=== PATIENT | male | born 1940 | race Asian ===

== ENCOUNTER 2023-08-24 02:25 | Inpatient (IN) | payer OTHER, BC ==
[~2023-08-24] VITALS: Ht 177.8 cm; Wt 77.6 kg
[2023-08-24 02:33] VITALS: BP 128/60; PULSE 74; RESP 18; TEMP 98.7; O2SAT 97
[2023-08-24 04:52] LABS: BASOPHILS # (AUTO) 0.1 K/uL (0.00-0.22); BASOPHILS % (AUTO) 1.1 % (0.0-2.0); EOSINOPHILS # (AUTO) 0.1 K/uL (0-0.4); EOSINOPHILS % (AUTO) 1.5 % (0.0-4.0); HEMATOCRIT 23.2 % (36-52); HEMOGLOBIN 7.8 g/dL (12.0-18.0); LYMPHOCYTES # (AUTO) 1.9 K/uL (2.0-11.5); LYMPHOCYTES % (AUTO) 22.5 % (20.5-51.1); MEAN CORPUSCULAR HEMOGLOBIN 36 pg (27-31); MEAN CORPUSCULAR HGB CONC 34 g/dL (33-37); MEAN CORPUSCULAR VOLUME 105.6 fL (80-94); MONOCYTES # (AUTO) 1.4 K/uL (0.8-1.0); MONOCYTES % (AUTO) 17.1 % (1.7-9.3); NEUTROPHILS # (AUTO) 4.9 K/uL (1.8-7.7); NEUTROPHILS % (AUTO) 57.8 % (42.2-75.2); PLATELET COUNT (AUTO) 255 K/uL (140-450); RED CELL DISTRIBUTION WIDTH 15.7 % (11.6-13.7); WHITE BLOOD COUNT (AUTO) 8.4 K/uL (4.8-10.8)
[2023-08-24 05:03] LABS: ANION GAP 12.3 (8-16); CALCIUM 8.1 mg/dL (8.5-10.1); CARBON DIOXIDE 29.5 mmol/L (21-32); CHLORIDE 98 mmol/L (98-107); CREATININE 3.8 mg/dL (0.6-1.3); GLUCOSE 95 mg/dL (74-106); POTASSIUM 4.8 mmol/L (3.5-5.1); SODIUM SERUM 135 mmol/L (136-145); UREA NITROGEN, BLOOD 48 mg/dL (7-18)
[2023-08-24] MEDS ORDERED: MORPHINE SULFATE 2 MG/ML SYR IVP PRN ×2 (05:50→15:45)
[2023-08-24] MEDS ORDERED: INSULIN LISPRO SLIDING SCALE 100 UNITS/ML VIAL SUBQ PRN (05:50)
[2023-08-24] MEDS ORDERED: DEXTROSE 50% 50 ML SYR IVP PRN (05:50)
[2023-08-24] MEDS ORDERED: NITROGLYCERIN 0.4 MG TAB SL PRN (05:50)
[2023-08-24] MEDS ORDERED: ACETAMINOPHEN 325 MG TAB PO PRN ×3 (05:50→15:45)
[2023-08-24] MEDS ORDERED: ZOLPIDEM 5 MG TAB PO PRN (05:50)
[2023-08-24 06:06] LABS: APPEARANCE,URINE CLEAR (CLEAR); BILIRUBIN,URINE NEGATIVE (NEGATIVE); BLOOD, URINE NEGATIVE (NEGATIVE); COLOR,URINE YELLOW (YELLOW); LEUKOCYTE ESTERASE ,URINE NEGATIVE (NEGATIVE); NITRITE, URINE NEGATIVE (NEGATIVE); PROTEIN,URINE 2+ (NEGATIVE); UGLUCOSE NEGATIVE (NEGATIVE); UROBILINOGEN,URINE 0.2 EU/dL (0.2 - 1)
[2023-08-24] MEDS ORDERED: ALLO100T21 PO (06:47)
[2023-08-24] MEDS ORDERED: HYDR-1102 PO (06:47)
[2023-08-24] MEDS ORDERED: ATOR40TA PO (06:47)
[2023-08-24] MEDS ORDERED: BISA-218 RC (06:47)
[2023-08-24] MEDS ORDERED: INSU100V9 SQ (06:47)
[2023-08-24] MEDS ORDERED: ACET-2619 PO (06:47)
[2023-08-24] MEDS ORDERED: SYN.075 PO (06:47)
[2023-08-24] MEDS ORDERED: [UNRECOGNIZED DRUG - CODE] PO (06:47)
[2023-08-24] MEDS ORDERED: CLOP75TA55 PO (06:47)
[2023-08-24] MEDS ORDERED: ASCO-5 PO (06:47)
[2023-08-24] MEDS ORDERED: CARV6.25 PO (06:47)
[2023-08-24] MEDS ORDERED: SYN.1 PO (06:47)
[2023-08-24] MEDS ORDERED: FURO-572 PO (06:47)
[2023-08-24] MEDS ORDERED: DOCU-299 PO (06:47)
[2023-08-24] MEDS ORDERED: ASPI-1822 PO (06:47)
[2023-08-24 07:22] VITALS: O2SAT 99
[2023-08-24] MEDS: BLOOD GLUCOSE MONITORING 1 DEV DEV FS SCH ×4 (07:40→20:26)
[2023-08-24] MEDS ORDERED: lisinopriL 20 MG TAB PO SCH (09:00)
[2023-08-24] MEDS: ASPIRIN 81 MG TAB.CHEW PO SCH (09:30)
[2023-08-24] MEDS: ATORVASTATIN 20 MG TAB PO SCH (09:31)
[2023-08-24] MEDS: METOPROLOL 25 MG TAB PO SCH ×2 (09:33→20:24)
[2023-08-24 10:19] VITALS: O2SAT 99
[2023-08-24 12:00] VITALS: BP 115/57; PULSE 68; PULSE 71; RESP 19; RESP 20; TEMP 97.2; O2SAT 97; O2SAT 98
[2023-08-24] MEDS ORDERED: POTASSIUM CHLORIDE 10 MEQ TABER PO PRN (15:45)
[2023-08-24] MEDS ORDERED: LORazepam 2 MG/ML VIAL IVP PRN (15:45)
[2023-08-24] MEDS ORDERED: DOCUSATE SODIUM 100 MG GELCAP PO PRN (15:45)
[2023-08-24] MEDS ORDERED: ZOLPIDEM 10 MG TAB PO PRN (15:45)
[2023-08-24] MEDS ORDERED: MAG SULF 2000 MG/WATER PREMIX 50 ML IV PRN (15:45)
[2023-08-24] MEDS ORDERED: ONDANSETRON 4 MG/2 ML VIAL IVP PRN (15:45)
[2023-08-24 16:00] VITALS: BP 96/38; PULSE 68; PULSE 71; RESP 23; O2SAT 97
[2023-08-24] MEDS: HYDROcodone/APAP 7.5/325 MG 1 TAB PO PRN (16:27)
[2023-08-24 20:00] VITALS: BP 129/51; PULSE 69; PULSE 75; RESP 26; TEMP 97.8; O2SAT 98
[2023-08-25] VITALS (8 sets, daily range): BP systolic 97–128; BP diastolic 37–63; PULSE 52–95; RESP 14–26; TEMP 97.1–98.5; O2SAT 95–99
[2023-08-25] MEDS: HYDROcodone/APAP 7.5/325 MG 1 TAB PO PRN ×3 (00:52→23:31)
[2023-08-25 06:03] LABS: BASOPHILS # (AUTO) 0.1 K/uL (0.00-0.22); BASOPHILS % (AUTO) 0.9 % (0.0-2.0); EOSINOPHILS # (AUTO) 0.1 K/uL (0-0.4); EOSINOPHILS % (AUTO) 1.6 % (0.0-4.0); HEMATOCRIT 23.8 % (36-52); LYMPHOCYTES # (AUTO) 2.4 K/uL (2.0-11.5); LYMPHOCYTES % (AUTO) 30.8 % (20.5-51.1); MEAN CORPUSCULAR HEMOGLOBIN 34 pg (27-31); MEAN CORPUSCULAR HGB CONC 34 g/dL (33-37); MEAN CORPUSCULAR VOLUME 102.4 fL (80-94); MONOCYTES # (AUTO) 1.3 K/uL (0.8-1.0); MONOCYTES % (AUTO) 17.1 % (1.7-9.3); NEUTROPHILS # (AUTO) 3.9 K/uL (1.8-7.7); NEUTROPHILS % (AUTO) 49.6 % (42.2-75.2); PLATELET COUNT (AUTO) 209 K/uL (140-450); RED BLOOD CELL COUNT(AUTO) 2.33 MIL/uL (4.20-6.10); RED CELL DISTRIBUTION WIDTH 18.2 % (11.6-13.7); WHITE BLOOD COUNT (AUTO) 7.8 K/uL (4.8-10.8)
[2023-08-25 06:33] LABS: ANION GAP 9.9 (8-16); CALCIUM 7.8 mg/dL (8.5-10.1); CARBON DIOXIDE 32.9 mmol/L (21-32); CHLORIDE 99 mmol/L (98-107); CREATININE 3.1 mg/dL (0.6-1.3); GLUCOSE 106 mg/dL (74-106); POTASSIUM 3.8 mmol/L (3.5-5.1); SODIUM SERUM 138 mmol/L (136-145); UREA NITROGEN, BLOOD 30 mg/dL (7-18)
[2023-08-25 07:01] LABS: MAGNESIUM 1.6 mg/dL (1.8-2.4)
[2023-08-25] MEDS: BLOOD GLUCOSE MONITORING 1 DEV DEV FS SCH ×4 (07:19→20:29)
[2023-08-25] MEDS: ATORVASTATIN 20 MG TAB PO SCH (09:32)
[2023-08-25] MEDS: VIT-B COMP/VIT-C/FOLIC ACID 1 TAB PO SCH (09:32)
[2023-08-25] MEDS: lisinopriL 10 MG TAB PO SCH (09:32)
[2023-08-25] MEDS: ASPIRIN 81 MG TAB.CHEW PO SCH (09:32)
[2023-08-25] MEDS: METOPROLOL 25 MG TAB PO SCH ×2 (09:33→21:00)
[2023-08-25] MEDS ORDERED: MAG SULF 2000 MG/WATER PREMIX 50 ML IV SCH (10:30)
[2023-08-26] VITALS (7 sets, daily range): BP systolic 120–164; BP diastolic 40–59; PULSE 70–82; RESP 18–72; TEMP 98.3–100.3; O2SAT 95–99
[2023-08-26 06:51] LABS: BASOPHILS % (AUTO) 0.6 % (0.0-2.0); EOSINOPHILS # (AUTO) 0.1 K/uL (0-0.4); HEMATOCRIT 23.3 % (36-52); HEMOGLOBIN 7.8 g/dL (12.0-18.0); LYMPHOCYTES # (AUTO) 2.6 K/uL (2.0-11.5); LYMPHOCYTES % (AUTO) 29.9 % (20.5-51.1); MEAN CORPUSCULAR HEMOGLOBIN 34 pg (27-31); MEAN CORPUSCULAR HGB CONC 33 g/dL (33-37); MEAN CORPUSCULAR VOLUME 102.4 fL (80-94); MONOCYTES # (AUTO) 1.3 K/uL (0.8-1.0); MONOCYTES % (AUTO) 15.3 % (1.7-9.3); NEUTROPHILS # (AUTO) 4.6 K/uL (1.8-7.7); NEUTROPHILS % (AUTO) 53.2 % (42.2-75.2); PLATELET COUNT (AUTO) 194 K/uL (140-450); RED BLOOD CELL COUNT(AUTO) 2.28 MIL/uL (4.20-6.10); RED CELL DISTRIBUTION WIDTH 18.1 % (11.6-13.7); WHITE BLOOD COUNT (AUTO) 8.7 K/uL (4.8-10.8)
[2023-08-26 07:00] LABS: ANION GAP 10.7 (8-16); CALCIUM 7.7 mg/dL (8.5-10.1); CARBON DIOXIDE 30.5 mmol/L (21-32); CHLORIDE 99 mmol/L (98-107); GLUCOSE 116 mg/dL (74-106); POTASSIUM 4.2 mmol/L (3.5-5.1); SODIUM SERUM 136 mmol/L (136-145); UREA NITROGEN, BLOOD 49 mg/dL (7-18)
[2023-08-26] MEDS: BLOOD GLUCOSE MONITORING 1 DEV DEV FS SCH ×4 (07:00→20:44)
[2023-08-26 07:59] LABS: CREATININE 4.1 mg/dL (0.6-1.3)
[2023-08-26] MEDS ORDERED: EPOETIN ALFA-EPBX 10,000 UNITS/ML VIAL IV SCH (09:00)
[2023-08-26] MEDS: HYDROcodone/APAP 7.5/325 MG 1 TAB PO PRN ×2 (09:42→19:01)
[2023-08-26] MEDS: ASPIRIN 81 MG TAB.CHEW PO SCH (10:49)
[2023-08-26] MEDS: ATORVASTATIN 20 MG TAB PO SCH (10:49)
[2023-08-26] MEDS: METOPROLOL 25 MG TAB PO SCH ×2 (10:52→20:44)
[2023-08-26] MEDS: VIT-B COMP/VIT-C/FOLIC ACID 1 TAB PO SCH (10:53)
[2023-08-26] MEDS: lisinopriL 10 MG TAB PO SCH (10:53)
[2023-08-26] MEDS ORDERED: METO25TA PO (11:23)
[2023-08-26] MEDS ORDERED: LISI10TA30 PO (11:23)
[2023-08-26] MEDS ORDERED: [UNRECOGNIZED DRUG - CODE] IV (11:23)
[2023-08-26] MEDS ORDERED: VITA1TAB44 PO (11:30)
[2023-08-26] MEDS ORDERED: FOAM DRESSING TP PRN (12:30)
[2023-08-26] MEDS ORDERED: GAUZE TP SCH (13:00)
[2023-08-26] MEDS ORDERED: FOAM DRESSING TP SCH (13:00)
== END 2023-08-26 21:50 | DRG 811 ==
LOC: MED 02:25 → MTU 05:57 → MIC 11:22 → MTU 08-25 18:30
PROVIDERS: ADMIT Family Medicine; ATTEND Family Medicine
PROC: 30233N1 Transfusion of Nonautologous Red Blood Cells into Peripheral Vein, Percutaneous Approach (ICD-10-PCS; principal; 2023-08-24)
PROC: 5A1D70Z Performance of Urinary Filtration, Intermittent, Less than 6 Hours Per Day (ICD-10-PCS; 2023-08-25)
DX: D53.9 Nutritional anemia, unspecified (principal); I21.A1 Myocardial infarction type 2; N18.6 End stage renal disease; I12.0 Hypertensive chronic kidney disease with stage 5 chronic kidney disease or end stage renal disease; I25.10 Atherosclerotic heart disease of native coronary artery without angina pectoris; E11.22 Type 2 diabetes mellitus with diabetic chronic kidney disease; Z99.2 Dependence on renal dialysis
CPT/HCPCS: 36415; 36430; 80048; 81003; 82948; 83735; 84484; 85025; 86886; 86900; 86901; 86920; 87081; 87086; 93005; 97116; 97163-GP; 99285; J1815; J3475; P9016; Q5106

== ENCOUNTER 2023-09-11 11:21 | Emergency (ER) | payer OTHER, BC ==
[~2023-09-11] VITALS: Ht 170.2 cm; Wt 77.1 kg
[~2023-09-11 11:21] MED LIST: ACET-2619 PO; ALLO100T21 PO; ASCO-5 PO; ASPI-1822 PO; ATOR40TA PO; BISA-218 RC; CARV6.25 PO; DOCU-299 PO; FURO-572 PO; HYDR-1102 PO; INSU100V9 SQ; LISI10TA30 PO; METO25TA PO; SYN.1 PO; VITA1TAB44 PO; [UNRECOGNIZED DRUG - CODE] IV; [UNRECOGNIZED DRUG - CODE] PO
[2023-09-11 11:23] VITALS: BP 152/72; PULSE 75; RESP 20; TEMP 98.7; O2SAT 96
[2023-09-11] MEDS ORDERED: ONDANSETRON 4 MG ODT PO ONE (12:50)
[2023-09-11] MEDS ORDERED: MORPHINE SULFATE 4 MG/ML SYR IM ONE (12:50)
[2023-09-11] MEDS ORDERED: AZIT250T4 PO (14:24)
[2023-09-11] MEDS ORDERED: HYDR-5191 PO (14:25)
[2023-09-11 15:41] VITALS: BP 154/55; PULSE 87; RESP 21; O2SAT 95
== END 2023-09-11 15:43 | disposition home or self-care (01) ==
LOC: MED 11:21
DX: J18.9 Pneumonia, unspecified organism (principal); R07.89 Other chest pain; K91.841 Postprocedural hemorrhage of a digestive system organ or structure following other procedure; I12.0 Hypertensive chronic kidney disease with stage 5 chronic kidney disease or end stage renal disease; E11.22 Type 2 diabetes mellitus with diabetic chronic kidney disease; N18.6 End stage renal disease; Z99.2 Dependence on renal dialysis; Z79.4 Long term (current) use of insulin; Z79.899 Other long term (current) drug therapy
CPT/HCPCS: 71045; 96372; 99283; J2270; Q0162

== ENCOUNTER 2023-10-11 14:05 | Inpatient (IN) | payer OTHER, BC ==
[~2023-10-11] VITALS: Ht 182.9 cm; Wt 76.5 kg
[~2023-10-11 14:05] MED LIST changes: +AZIT250T4 PO; +HYDR-5191 PO
[2023-10-11 14:19] VITALS: BP 96/39; PULSE 74; RESP 16; TEMP 98.2; O2SAT 97
[2023-10-11 15:06] VITALS: PULSE 74; RESP 16; O2SAT 100
[2023-10-11] MEDS: ALBUTEROL 0.083% 2.5 MG/3 ML NEBU INH ONE (15:06)
[2023-10-11] MEDS: NACL 0.9% 2,000 ML IV SCH (15:17)
[2023-10-11] MEDS ORDERED: PIPERACILLIN/TAZOBACTAM 3.375 GM VIAL IV ONE (15:20)
[2023-10-11 15:32] LABS: BASOPHILS # (AUTO) 0.1 K/uL (0.00-0.22); BASOPHILS % (AUTO) 0.6 % (0.0-2.0); EOSINOPHILS % (AUTO) 0.3 % (0.0-4.0); HEMATOCRIT 30.1 % (36-52); HEMOGLOBIN 9.6 g/dL (12.0-18.0); LYMPHOCYTES # (AUTO) 3.5 K/uL (2.0-11.5); LYMPHOCYTES % (AUTO) 24.4 % (20.5-51.1); MEAN CORPUSCULAR HEMOGLOBIN 34 pg (27-31); MEAN CORPUSCULAR HGB CONC 32 g/dL (33-37); MEAN CORPUSCULAR VOLUME 107.5 fL (80-94); MONOCYTES # (AUTO) 1.1 K/uL (0.8-1.0); MONOCYTES % (AUTO) 7.6 % (1.7-9.3); NEUTROPHILS # (AUTO) 9.7 K/uL (1.8-7.7); NEUTROPHILS % (AUTO) 67.1 % (42.2-75.2); PLATELET COUNT (AUTO) 72 K/uL (140-450); WHITE BLOOD COUNT (AUTO) 14.4 K/uL (4.8-10.8)
[2023-10-11] MEDS: PIPERACILLIN/TAZOBACTAM 3.375 GM in DEXT 5% MINI-BAG PLUS 50 ML IV ONE (15:40)
[2023-10-11 15:43] LABS: ANION GAP 9.3 (8-16); CALCIUM 6.9 mg/dL (8.5-10.1); CHLORIDE 103 mmol/L (98-107); GLUCOSE 88 mg/dL (74-106); POTASSIUM 4.3 mmol/L (3.5-5.1); SODIUM SERUM 137 mmol/L (136-145); UREA NITROGEN, BLOOD 31 mg/dL (7-18)
[2023-10-11 15:48] LABS: BILIRUBIN,DIRECT 0.1 mg/dL (0.0-0.3)
[2023-10-11 15:52] LABS: LACTIC ACID 0.9 mmol/L (0.4-2.0)
[2023-10-11 15:54] LABS: CREATININE 4.4 mg/dL (0.6-1.3)
[2023-10-11 15:56] LABS: ALANINE AMINOTRANSFERASE 4 U/L (12-78); ALBUMIN 0.9 g/dL (3.4-5.0); ALKALINE PHOSPHATASE 51 U/L (50-136); ASPARTATE AMINOTRANSFERASE 22 U/L (15-37); TOTAL BILIRUBIN 0.3 mg/dL (0.0-1.0); TOTAL PROTEIN, SERUM 4.4 g/dL (6.4-8.2)
[2023-10-11 16:02] LABS: INR 1.68 (0.8-1.2); PARTIAL THROMBOPLASTIN TIME 38.9 secs (22-35.6); PROTHROMBIN TIME 17.2 secs (10.8-13.4)
[2023-10-11] MEDS ORDERED: DIAZEPAM PFS 10 MG/2 ML SYR IVP ONE (16:40)
[2023-10-11 18:48] LABS: APPEARANCE,URINE CLOUDY (CLEAR); BILIRUBIN,URINE NEGATIVE (NEGATIVE); BLOOD, URINE 2+ (NEGATIVE); COLOR,URINE GREEN (YELLOW); LEUKOCYTE ESTERASE ,URINE 3+ (NEGATIVE); NITRITE, URINE POSITIVE (NEGATIVE); PROTEIN,URINE 3+ (NEGATIVE); UGLUCOSE NEGATIVE (NEGATIVE); UROBILINOGEN,URINE 0.2 EU/dL (0.2 - 1)
[2023-10-11 19:00] LABS: RBC,URINE 20-50 /HPF (0-5)
[2023-10-11 19:01] LABS: BACTERIA,URINE None Seen /HPF (None Seen); MUCUS,URINE 2+ /LPF (None Seen); SQUAMOUS EPITHELIAL CELL,UR 0-3 (FEW) /LPF (0-3 (FEW)); WBC,URINE 20-60 /HPF (0-5)
[2023-10-11] MEDS ORDERED: LEVO0.0512 PO (19:24)
[2023-10-11] MEDS ORDERED: ATOR40TA40 PO (19:24)
[2023-10-11] MEDS ORDERED: ALLO100T21 PO (19:24)
[2023-10-11] MEDS ORDERED: TAMS0.4C97 PO (19:24)
[2023-10-11] MEDS ORDERED: CARV6.252 PO (19:24)
[2023-10-11 19:34] VITALS: O2SAT 98
[2023-10-11] MEDS ORDERED: MAG SULF 2000 MG/WATER PREMIX 50 ML IV PRN (20:30)
[2023-10-11] MEDS ORDERED: ONDANSETRON 4 MG/2 ML VIAL IVP PRN (20:30)
[2023-10-11] MEDS ORDERED: HYDROcodone/APAP 5/325 MG 1 TAB TAB PO PRN (20:30)
[2023-10-11] MEDS ORDERED: POLYETHYLENE GLYCOL 17 GM/PKT PO PRN (20:30)
[2023-10-11] MEDS ORDERED: MELATONIN 3 MG TAB PO PRN (20:30)
[2023-10-11] MEDS ORDERED: PHARMACY TO DOSE MC PRN (20:35)
[2023-10-11] MEDS ORDERED: VANCOMYCIN PER PHARMACY MC PRN (20:35)
[2023-10-11] MEDS ORDERED: HEPARIN PER PHARMACY MC PRN ×2 (20:40→23:25)
[2023-10-11] MEDS ORDERED: DEXT 5% / NACL 0.45% 1,000 ML IV ONE (20:40)
[2023-10-11] MEDS ORDERED: DEXTROSE 50% 50 ML SYR IVP PRN (20:45)
[2023-10-11] MEDS: carvediloL 6.25 MG TAB PO SCH (21:00)
[2023-10-11 21:17] LABS: FREE T4 (FREE THYROXINE) 1.11 ng/dL (0.76-1.46); THYROID STIMULATING HORMONE 4.18 uIU/mL (0.34-3.74)
[2023-10-11] MEDS: BLOOD GLUCOSE MONITORING 1 DEV DEV FS SCH (21:33)
[2023-10-11 21:41] VITALS: O2SAT 100
[2023-10-11] MEDS ORDERED: PIPERACILLIN/TAZOBACTAM 2.25 GM VIAL IV ONE (21:49)
[2023-10-11] MEDS: PIPERACILLIN/TAZOBACTAM 2.25 GM in DEXTROSE 5% 50 ML IV SCH (21:57)
[2023-10-11 22:52] LABS: FLU A ANTIGEN negative (NEGATIVE); FLU B ANTIGEN NEGATIVE (NEGATIVE)
[2023-10-11] MEDS ORDERED: VANCOMYCIN HCL 750 MG PDS IV ONE (22:55)
[2023-10-11] MEDS: VANCOMYCIN 500 MG VIAL ONE (23:06)
[2023-10-11] MEDS ORDERED: hePARIN / DEXT 5% PREMIX 250 ML IV SCH (23:25)
[2023-10-11] MEDS: VANCOMYCIN HCL 1.25 GM in DEXTROSE 5% 250 ML IV SCH (23:30)
[2023-10-11] MEDS ORDERED: VOL25 PO (23:47)
[2023-10-11] MEDS ORDERED: ALBU0.5S1 NEB (23:47)
[2023-10-11] MEDS ORDERED: ATOR40TA PO (23:47)
[2023-10-11] MEDS ORDERED: DIPH25TA53 PO (23:47)
[2023-10-11] MEDS ORDERED: LISI40TA12 PO (23:47)
[2023-10-11] MEDS ORDERED: ACET-2619 GT (23:47)
[2023-10-11] MEDS ORDERED: SENN-73 PO (23:47)
[2023-10-11] MEDS ORDERED: ATI.5 PO (23:47)
[2023-10-11] MEDS ORDERED: FAMO-90 PO (23:47)
[2023-10-11] MEDS ORDERED: MAGN400S60 PO (23:47)
[2023-10-11] MEDS ORDERED: GABA100C PO (23:47)
[2023-10-11] MEDS ORDERED: APIX5TAB PO (23:47)
[2023-10-11] MEDS ORDERED: QUET25TA PO (23:47)
[2023-10-11] MEDS ORDERED: METO50TE2 PO (23:47)
[2023-10-11] MEDS ORDERED: HYDR-5191 PO (23:47)
[2023-10-11] MEDS ORDERED: XALOS OP (23:47)
[2023-10-11] MEDS ORDERED: HYDR100T49 PO (23:47)
[2023-10-11] MEDS ORDERED: ROB1 PO (23:47)
[2023-10-11] MEDS ORDERED: CLON0.1T16 PO (23:47)
[2023-10-11] MEDS ORDERED: DAPA10TA PO (23:47)
[2023-10-11] MEDS ORDERED: ALBU3SOL83 IH (23:47)
[2023-10-12] VITALS (10 sets, daily range): BP systolic 91–139; BP diastolic 44–72; PULSE 68–94; RESP 22–40; TEMP 97.5–97.8; O2SAT 96–100
[2023-10-12] MEDS: hePARIN / DEXT 5% PREMIX 250 ML IV SCH (02:03)
[2023-10-12] MEDS ORDERED: PIPERACILLIN/TAZOBACTAM 2.25 GM VIAL IV ONE (05:05)
[2023-10-12 07:15] LABS: BASOPHILS # (AUTO) 0.1 K/uL (0.00-0.22); BASOPHILS % (AUTO) 0.7 % (0.0-2.0); EOSINOPHILS # (AUTO) 0.1 K/uL (0-0.4); EOSINOPHILS % (AUTO) 0.7 % (0.0-4.0); HEMATOCRIT 29.4 % (36-52); HEMOGLOBIN 9.5 g/dL (12.0-18.0); LYMPHOCYTES # (AUTO) 2.8 K/uL (2.0-11.5); LYMPHOCYTES % (AUTO) 20.1 % (20.5-51.1); MEAN CORPUSCULAR HEMOGLOBIN 35 pg (27-31); MEAN CORPUSCULAR HGB CONC 32 g/dL (33-37); MEAN CORPUSCULAR VOLUME 107.1 fL (80-94); MONOCYTES % (AUTO) 7.5 % (1.7-9.3); NEUTROPHILS # (AUTO) 9.8 K/uL (1.8-7.7); PLATELET COUNT (AUTO) 76 K/uL (140-450); RED BLOOD CELL COUNT(AUTO) 2.74 MIL/uL (4.20-6.10); RED CELL DISTRIBUTION WIDTH 22.7 % (11.6-13.7); WHITE BLOOD COUNT (AUTO) 13.8 K/uL (4.8-10.8)
[2023-10-12 08:41] LABS: GLUCOSE 111 mg/dL (74-106); UREA NITROGEN, BLOOD 37 mg/dL (7-18)
[2023-10-12 08:51] LABS: ALANINE AMINOTRANSFERASE 6 U/L (12-78); ASPARTATE AMINOTRANSFERASE 33 U/L (15-37)
[2023-10-12 08:58] LABS: ALKALINE PHOSPHATASE 71 U/L (50-136); TOTAL BILIRUBIN 0.4 mg/dL (0.0-1.0)
[2023-10-12] MEDS ORDERED: ASPIRIN 81 MG TAB.CHEW PO SCH (09:00)
[2023-10-12] MEDS: LEVOTHYROXINE 0.1 MG TAB PO SCH (09:00)
[2023-10-12] MEDS: ATORVASTATIN 20 MG TAB PO SCH (09:00)
[2023-10-12] MEDS: ASPIRIN 81 MG TAB.CHEW PO SCH (09:00)
[2023-10-12 09:07] LABS: ANION GAP 11.2 (8-16); CALCIUM 6.7 mg/dL (8.5-10.1); CARBON DIOXIDE 26.5 mmol/L (21-32); CHLORIDE 105 mmol/L (98-107); POTASSIUM 4.7 mmol/L (3.5-5.1); SODIUM SERUM 138 mmol/L (136-145)
[2023-10-12 09:08] LABS: ALBUMIN 1.1 g/dL (3.4-5.0); MAGNESIUM 1.5 mg/dL (1.8-2.4)
[2023-10-12 09:12] LABS: CREATININE 4.8 mg/dL (0.6-1.3)
[2023-10-13] VITALS (27 sets, daily range): BP systolic 82–125; BP diastolic 34–71; PULSE 49–75; RESP 12–40; TEMP 96.4–98.3; O2SAT 97–100
[2023-10-13 03:16] LABS: BASOPHILS % (AUTO) 0.4 % (0.0-2.0); EOSINOPHILS # (AUTO) 0.2 K/uL (0-0.4); EOSINOPHILS % (AUTO) 2.7 % (0.0-4.0); HEMATOCRIT 25.8 % (36-52); HEMOGLOBIN 8.3 g/dL (12.0-18.0); LYMPHOCYTES # (AUTO) 3.2 K/uL (2.0-11.5); LYMPHOCYTES % (AUTO) 35.9 % (20.5-51.1); MEAN CORPUSCULAR HEMOGLOBIN 35 pg (27-31); MEAN CORPUSCULAR HGB CONC 32 g/dL (33-37); MEAN CORPUSCULAR VOLUME 108.4 fL (80-94); MONOCYTES # (AUTO) 0.9 K/uL (0.8-1.0); MONOCYTES % (AUTO) 9.7 % (1.7-9.3); NEUTROPHILS # (AUTO) 4.5 K/uL (1.8-7.7); NEUTROPHILS % (AUTO) 51.3 % (42.2-75.2); PLATELET COUNT (AUTO) 69 K/uL (140-450); RED BLOOD CELL COUNT(AUTO) 2.38 MIL/uL (4.20-6.10); RED CELL DISTRIBUTION WIDTH 22.9 % (11.6-13.7); WHITE BLOOD COUNT (AUTO) 8.8 K/uL (4.8-10.8)
[2023-10-13 03:33] LABS: ALANINE AMINOTRANSFERASE 8 U/L (12-78); ALKALINE PHOSPHATASE 66 U/L (50-136); ANION GAP 6.9 (8-16); ASPARTATE AMINOTRANSFERASE 27 U/L (15-37); CALCIUM 6.1 mg/dL (8.5-10.1); CARBON DIOXIDE 29.2 mmol/L (21-32); CHLORIDE 108 mmol/L (98-107); CREATININE 3.3 mg/dL (0.6-1.3); GLUCOSE 150 mg/dL (74-106); MAGNESIUM 1.4 mg/dL (1.8-2.4); PHOSPHORUS 2.6 mg/dL (2.5-4.9); POTASSIUM 3.1 mmol/L (3.5-5.1); SODIUM SERUM 141 mmol/L (136-145); TOTAL BILIRUBIN 0.2 mg/dL (0.0-1.0); UREA NITROGEN, BLOOD 23 mg/dL (7-18)
[2023-10-13] MEDS: POTASSIUM CHL 20 MEQ/NACL 0.9% 1,000 ML IV PRN (04:33)
[2023-10-13] MEDS: VANCOMYCIN 500 MG in DEXTROSE 5% 100 ML IV SCH (08:34)
[2023-10-13] MEDS: POTASSIUM CHLORIDE 10 MEQ TABER PO SCH (10:35)
[2023-10-13] MEDS: Z-GUARD PASTE TP SCH (14:00)
[2023-10-13 15:06] LABS: HEPATITIS A ANTIBODY IGM Negative (Negative); HEPATITIS B CORE AB TOTAL Negative (Negative); HEPATITIS B CORE, IGM Negative (Negative); HEPATITIS B SURFACE ANTIBODY Reactive (.); HEPATITIS B SURFACE ANTIGEN Negative (Negative); HEPATITIS C VIRUS ANTIBODY Non Reactive (Non Reactive)
[2023-10-13] MEDS: ACETAMINOPHEN 325 MG TAB PO PRN (15:17)
[2023-10-13] MEDS: MAG SULF 2000 MG/WATER PREMIX 50 ML IV SCH (15:18)
[2023-10-13 20:51] LABS: HEPATITIS A ANTIBODY TOTAL Positive (Negative)
[2023-10-13 22:02] LABS: BLOOD GAS PCO2 40.8 mmHg (35-45); BLOOD GAS PH 7.443 (7.35-7.45)
[2023-10-13 22:03] LABS: BLOOD GAS BASE EXCESS 2.9 mmol/L (-2.0-2.0); BLOOD GAS HCO3 27.3 mmol/L (22-26); BLOOD GAS PO2 36.4 mmHg (75-100)
[2023-10-13 22:07] LABS: BLOOD GAS O2 SAT% 70.8 % (92.0-98.5)
[2023-10-14] VITALS (35 sets, daily range): BP systolic 86–170; BP diastolic 34–72; PULSE 48–106; RESP 11–20; TEMP 97.2–99.8; O2SAT 95–100
[2023-10-14] MEDS: NOREPINEPHRINE 4 MG/4 ML VIAL IV ONE (02:40)
[2023-10-14] MEDS: NOREPINEPHRINE 16 MG in DEXTROSE 5% 250 ML IV PRN (03:46)
[2023-10-14 06:02] LABS: ALANINE AMINOTRANSFERASE 13 U/L (12-78); ALBUMIN 1.2 g/dL (3.4-5.0); ALKALINE PHOSPHATASE 89 U/L (50-136); ANION GAP 11.2 (8-16); ASPARTATE AMINOTRANSFERASE 37 U/L (15-37); CARBON DIOXIDE 26.3 mmol/L (21-32); CHLORIDE 104 mmol/L (98-107); GLUCOSE 122 mg/dL (74-106); MAGNESIUM 2.1 mg/dL (1.8-2.4); PHOSPHORUS 2.7 mg/dL (2.5-4.9); POTASSIUM 4.5 mmol/L (3.5-5.1); SODIUM SERUM 137 mmol/L (136-145); TOTAL BILIRUBIN 0.4 mg/dL (0.0-1.0); TOTAL PROTEIN, SERUM 6.1 g/dL (6.4-8.2)
[2023-10-14 06:08] LABS: CREATININE 4.4 mg/dL (0.6-1.3); UREA NITROGEN, BLOOD 30 mg/dL (7-18)
[2023-10-14 07:04] LABS: HEMATOCRIT 28.4 % (36-52); HEMOGLOBIN 9.1 g/dL (12.0-18.0); MEAN CORPUSCULAR HEMOGLOBIN 35 pg (27-31); MEAN CORPUSCULAR HGB CONC 32 g/dL (33-37); MEAN CORPUSCULAR VOLUME 110.3 fL (80-94); PLATELET COUNT (AUTO) 80 K/uL (140-450); RED BLOOD CELL COUNT(AUTO) 2.58 MIL/uL (4.20-6.10); RED CELL DISTRIBUTION WIDTH 22.5 % (11.6-13.7)
[2023-10-14 07:55] LABS: LYMPHOCYTES % (MANUAL) 46 % (20-46); MONOCYTES % (MANUAL) 5 % (5-12)
[2023-10-14 07:56] LABS: ANISOCYTOSIS 2+; BASOPHILS % (MANUAL) 0 % (0-2); EOSINOPHILS % (MANUAL) 2 % (0-4); HYPOCHROMASIA 2+; PLATELET ESTIMATE DECREASED; POLYCHROMASIA 1+
[2023-10-14 07:57] LABS: BURR CELLS 2+; TEAR DROP CELLS 1+
[2023-10-14] MEDS: EPOETIN ALFA-EPBX 10,000 UNITS/ML VIAL IV SCH (09:00)
[2023-10-14] MEDS: MUPIROCIN CA NASAL 2% 1GM TUBE NS SCH (09:00)
[2023-10-14] MEDS: CHLORHEXADINE GLUC 2% CLOTH TP SCH (09:00)
[2023-10-14] MEDS: LIDOCAINE MPF 1% 5 ML ONE (15:09)
[2023-10-14] MEDS: MORPHINE SULFATE 2 MG/ML SYR IVP PRN (15:47)
[2023-10-14 16:52] LABS: BASOPHILS # (AUTO) 0.1 K/uL (0.00-0.22); BASOPHILS % (AUTO) 0.9 % (0.0-2.0); EOSINOPHILS # (AUTO) 0.2 K/uL (0-0.4); EOSINOPHILS % (AUTO) 1.9 % (0.0-4.0); HEMATOCRIT 28.9 % (36-52); HEMOGLOBIN 9.4 g/dL (12.0-18.0); LYMPHOCYTES % (AUTO) 43.8 % (20.5-51.1); MEAN CORPUSCULAR HEMOGLOBIN 35 pg (27-31); MEAN CORPUSCULAR HGB CONC 33 g/dL (33-37); MEAN CORPUSCULAR VOLUME 107.6 fL (80-94); MONOCYTES # (AUTO) 0.9 K/uL (0.8-1.0); MONOCYTES % (AUTO) 9.5 % (1.7-9.3); NEUTROPHILS % (AUTO) 43.9 % (42.2-75.2); PLATELET COUNT (AUTO) 68 K/uL (140-450); RED BLOOD CELL COUNT(AUTO) 2.68 MIL/uL (4.20-6.10); RED CELL DISTRIBUTION WIDTH 22.1 % (11.6-13.7); WHITE BLOOD COUNT (AUTO) 9.1 K/uL (4.8-10.8)
[2023-10-14 18:18] LABS: INR 1.25 (0.8-1.2)
[2023-10-15] VITALS (22 sets, daily range): BP systolic 98–154; BP diastolic 39–64; PULSE 50–81; RESP 12–18; TEMP 96.3–98.1; O2SAT 98–100
[2023-10-15 07:00] LABS: ALANINE AMINOTRANSFERASE 12 U/L (12-78); ALBUMIN 1.1 g/dL (3.4-5.0); ALKALINE PHOSPHATASE 88 U/L (50-136); ANION GAP 8.2 (8-16); ASPARTATE AMINOTRANSFERASE 33 U/L (15-37); CALCIUM 7.2 mg/dL (8.5-10.1); CARBON DIOXIDE 30.6 mmol/L (21-32); CHLORIDE 103 mmol/L (98-107); CREATININE 3.5 mg/dL (0.6-1.3); GLUCOSE 133 mg/dL (74-106); MAGNESIUM 1.9 mg/dL (1.8-2.4); PHOSPHORUS 2.4 mg/dL (2.5-4.9); POTASSIUM 3.8 mmol/L (3.5-5.1); SODIUM SERUM 138 mmol/L (136-145); TOTAL BILIRUBIN 0.4 mg/dL (0.0-1.0); TOTAL PROTEIN, SERUM 5.4 g/dL (6.4-8.2); UREA NITROGEN, BLOOD 21 mg/dL (7-18)
[2023-10-15 07:18] LABS: BASOPHILS # (AUTO) 0.1 K/uL (0.00-0.22); BASOPHILS % (AUTO) 0.9 % (0.0-2.0); EOSINOPHILS # (AUTO) 0.2 K/uL (0-0.4); EOSINOPHILS % (AUTO) 2.6 % (0.0-4.0); HEMATOCRIT 26.2 % (36-52); HEMOGLOBIN 8.4 g/dL (12.0-18.0); LYMPHOCYTES # (AUTO) 2.8 K/uL (2.0-11.5); LYMPHOCYTES % (AUTO) 43.6 % (20.5-51.1); MEAN CORPUSCULAR HEMOGLOBIN 35 pg (27-31); MEAN CORPUSCULAR HGB CONC 32 g/dL (33-37); MEAN CORPUSCULAR VOLUME 108.5 fL (80-94); MONOCYTES # (AUTO) 0.7 K/uL (0.8-1.0); NEUTROPHILS # (AUTO) 2.7 K/uL (1.8-7.7); NEUTROPHILS % (AUTO) 41.9 % (42.2-75.2); PLATELET COUNT (AUTO) 65 K/uL (140-450); RED BLOOD CELL COUNT(AUTO) 2.42 MIL/uL (4.20-6.10); RED CELL DISTRIBUTION WIDTH 22.3 % (11.6-13.7); WHITE BLOOD COUNT (AUTO) 6.5 K/uL (4.8-10.8)
[2023-10-15] MEDS: VANCOMYCIN 750 MG in DEXTROSE 5% 250 ML IV SCH (11:19)
[2023-10-15] MEDS: INSULIN LISPRO SLIDING SCALE 100 UNITS/ML VIAL SUBQ PRN (11:31)
[2023-10-16] VITALS (13 sets, daily range): BP systolic 90–141; BP diastolic 42–99; PULSE 67–89; RESP 18–20; TEMP 96–98.3; O2SAT 98–100
[2023-10-16] MEDS: LEVOTHYROXINE 0.1 MG TAB PO SCH (06:10)
[2023-10-16 07:04] LABS: BASOPHILS % (AUTO) 0.8 % (0.0-2.0); EOSINOPHILS # (AUTO) 0.2 K/uL (0-0.4); HEMOGLOBIN 8.6 g/dL (12.0-18.0); LYMPHOCYTES # (AUTO) 2.6 K/uL (2.0-11.5); MEAN CORPUSCULAR HEMOGLOBIN 35 pg (27-31); MEAN CORPUSCULAR HGB CONC 33 g/dL (33-37); MEAN CORPUSCULAR VOLUME 106.4 fL (80-94); MONOCYTES # (AUTO) 0.6 K/uL (0.8-1.0); MONOCYTES % (AUTO) 10.3 % (1.7-9.3); NEUTROPHILS # (AUTO) 2.5 K/uL (1.8-7.7); NEUTROPHILS % (AUTO) 41.9 % (42.2-75.2); PLATELET COUNT (AUTO) 67 K/uL (140-450); RED BLOOD CELL COUNT(AUTO) 2.45 MIL/uL (4.20-6.10); RED CELL DISTRIBUTION WIDTH 21.8 % (11.6-13.7); WHITE BLOOD COUNT (AUTO) 5.9 K/uL (4.8-10.8)
[2023-10-16 07:17] LABS: ALANINE AMINOTRANSFERASE 10 U/L (12-78); ALBUMIN 1.1 g/dL (3.4-5.0); ALKALINE PHOSPHATASE 80 U/L (50-136); ANION GAP 9.8 (8-16); ASPARTATE AMINOTRANSFERASE 28 U/L (15-37); CALCIUM 7.1 mg/dL (8.5-10.1); CARBON DIOXIDE 27.2 mmol/L (21-32); CHLORIDE 102 mmol/L (98-107); GLUCOSE 115 mg/dL (74-106); MAGNESIUM 1.7 mg/dL (1.8-2.4); PHOSPHORUS 3.1 mg/dL (2.5-4.9); SODIUM SERUM 135 mmol/L (136-145); TOTAL BILIRUBIN 0.5 mg/dL (0.0-1.0); TOTAL PROTEIN, SERUM 5.9 g/dL (6.4-8.2); UREA NITROGEN, BLOOD 24 mg/dL (7-18)
[2023-10-16 07:32] LABS: CREATININE 4.2 mg/dL (0.6-1.3)
[2023-10-16] MEDS: Z-GUARD PASTE TP SCH (10:11)
[2023-10-16] MEDS ORDERED: VANCOMYCIN PER PHARMACY MC PRN ×2 (10:30)
[2023-10-16] MEDS: PIPERACILLIN/TAZOBACTAM 2.25 GM in DEXTROSE 5% 50 ML IV SCH (12:03)
[2023-10-16] MEDS: MAGNESIUM OXIDE 400 MG TAB PO ONE (18:40)
[2023-10-17] VITALS (13 sets, daily range): BP systolic 120–148; BP diastolic 47–91; PULSE 63–86; RESP 16–18; TEMP 97–98.6; O2SAT 95–100
[2023-10-17 07:01] LABS: BASOPHILS % (AUTO) 0.8 % (0.0-2.0); EOSINOPHILS # (AUTO) 0.2 K/uL (0-0.4); EOSINOPHILS % (AUTO) 3.2 % (0.0-4.0); HEMATOCRIT 26.4 % (36-52); HEMOGLOBIN 8.7 g/dL (12.0-18.0); LYMPHOCYTES # (AUTO) 2.9 K/uL (2.0-11.5); LYMPHOCYTES % (AUTO) 45.4 % (20.5-51.1); MEAN CORPUSCULAR HEMOGLOBIN 35 pg (27-31); MEAN CORPUSCULAR HGB CONC 33 g/dL (33-37); MEAN CORPUSCULAR VOLUME 106.7 fL (80-94); MONOCYTES # (AUTO) 0.6 K/uL (0.8-1.0); MONOCYTES % (AUTO) 9.5 % (1.7-9.3); NEUTROPHILS # (AUTO) 2.6 K/uL (1.8-7.7); NEUTROPHILS % (AUTO) 41.1 % (42.2-75.2); PLATELET COUNT (AUTO) 69 K/uL (140-450); RED BLOOD CELL COUNT(AUTO) 2.47 MIL/uL (4.20-6.10); RED CELL DISTRIBUTION WIDTH 21.6 % (11.6-13.7); WHITE BLOOD COUNT (AUTO) 6.4 K/uL (4.8-10.8)
[2023-10-17 07:29] LABS: ALANINE AMINOTRANSFERASE 12 U/L (12-78); ALBUMIN 1.2 g/dL (3.4-5.0); ALKALINE PHOSPHATASE 86 U/L (50-136); ANION GAP 10.9 (8-16); ASPARTATE AMINOTRANSFERASE 30 U/L (15-37); CALCIUM 7.2 mg/dL (8.5-10.1); CARBON DIOXIDE 27.4 mmol/L (21-32); CHLORIDE 102 mmol/L (98-107); GLUCOSE 110 mg/dL (74-106); PHOSPHORUS 4.1 mg/dL (2.5-4.9); POTASSIUM 4.3 mmol/L (3.5-5.1); SODIUM SERUM 136 mmol/L (136-145); TOTAL BILIRUBIN 0.5 mg/dL (0.0-1.0); TOTAL PROTEIN, SERUM 6.3 g/dL (6.4-8.2); UREA NITROGEN, BLOOD 29 mg/dL (7-18)
[2023-10-18] VITALS (9 sets, daily range): BP systolic 117–140; BP diastolic 60–110; PULSE 61–85; RESP 18; TEMP 96.8–98.1; O2SAT 97–100
[2023-10-18 07:08] LABS: HEMATOCRIT 25.3 % (36-52); HEMOGLOBIN 8.4 g/dL (12.0-18.0); MEAN CORPUSCULAR HEMOGLOBIN 35 pg (27-31); MEAN CORPUSCULAR HGB CONC 33 g/dL (33-37); MEAN CORPUSCULAR VOLUME 105.6 fL (80-94); PLATELET COUNT (AUTO) 56 K/uL (140-450); RED CELL DISTRIBUTION WIDTH 21.1 % (11.6-13.7); WHITE BLOOD COUNT (AUTO) 4.8 K/uL (4.8-10.8)
[2023-10-18 07:12] LABS: ALANINE AMINOTRANSFERASE 12 U/L (12-78); ALBUMIN 1.1 g/dL (3.4-5.0); ALKALINE PHOSPHATASE 79 U/L (50-136); ANION GAP 9.6 (8-16); ASPARTATE AMINOTRANSFERASE 27 U/L (15-37); CALCIUM 6.9 mg/dL (8.5-10.1); CARBON DIOXIDE 28.6 mmol/L (21-32); CHLORIDE 101 mmol/L (98-107); CREATININE 3.2 mg/dL (0.6-1.3); GLUCOSE 122 mg/dL (74-106); MAGNESIUM 1.7 mg/dL (1.8-2.4); PHOSPHORUS 3.2 mg/dL (2.5-4.9); POTASSIUM 3.2 mmol/L (3.5-5.1); SODIUM SERUM 136 mmol/L (136-145); TOTAL BILIRUBIN 0.4 mg/dL (0.0-1.0); TOTAL PROTEIN, SERUM 5.9 g/dL (6.4-8.2); UREA NITROGEN, BLOOD 15 mg/dL (7-18)
[2023-10-18 08:26] LABS: LYMPHOCYTES % (MANUAL) 42 % (20-46); MONOCYTES % (MANUAL) 9 % (5-12)
[2023-10-18] MEDS: VANCOMYCIN 500 MG in DEXTROSE 5% 100 ML IV SCH (09:45)
[2023-10-18] MEDS ORDERED: PIPE50SO5 IV (12:32)
[2023-10-18] MEDS: POTASSIUM CHLORIDE 10 MEQ TABER PO SCH (15:15)
== END 2023-10-18 16:47 | DRG 871 ==
LOC: MED 14:05 → MTU 20:32 → MIC 10-12 13:00 → MTU 10-15 09:54
PROVIDERS: ADMIT Family Medicine; ATTEND Family Medicine
PROC: 5A1D70Z Performance of Urinary Filtration, Intermittent, Less than 6 Hours Per Day (ICD-10-PCS; 2023-10-12)
PROC: 05H633Z Insertion of Infusion Device into Left Subclavian Vein, Percutaneous Approach (ICD-10-PCS; 2023-10-13)
PROC: 5A1D70Z Performance of Urinary Filtration, Intermittent, Less than 6 Hours Per Day (ICD-10-PCS; 2023-10-13)
PROC: 05PYX3Z Removal of Infusion Device from Upper Vein, External Approach (ICD-10-PCS; 2023-10-14)
PROC: 0JH60XZ Insertion of Tunneled Vascular Access Device into Chest Subcutaneous Tissue and Fascia, Open Approach (ICD-10-PCS; principal; 2023-10-17)
PROC: 05HN33Z Insertion of Infusion Device into Left Internal Jugular Vein, Percutaneous Approach (ICD-10-PCS; 2023-10-17)
PROC: B544ZZA Ultrasonography of Left Jugular Veins, Guidance (ICD-10-PCS; 2023-10-17)
PROC: 5A1D70Z Performance of Urinary Filtration, Intermittent, Less than 6 Hours Per Day (ICD-10-PCS; 2023-10-17)
PROC: 5A1D70Z Performance of Urinary Filtration, Intermittent, Less than 6 Hours Per Day (ICD-10-PCS; 2023-10-18)
PROC: 5A0945A Assistance with Respiratory Ventilation, 24-96 Consecutive Hours, High Flow/Velocity Cannula (ICD-10-PCS; 2023-10-18)
DX: A41.02 Sepsis due to Methicillin resistant Staphylococcus aureus (principal); I21.A1 Myocardial infarction type 2; N18.6 End stage renal disease; J15.9 Unspecified bacterial pneumonia; I13.11 Hypertensive heart and chronic kidney disease without heart failure, with stage 5 chronic kidney disease, or end stage renal disease; T80.211A Bloodstream infection due to central venous catheter, initial encounter; N39.0 Urinary tract infection, site not specified; E11.22 Type 2 diabetes mellitus with diabetic chronic kidney disease; I25.10 Atherosclerotic heart disease of native coronary artery without angina pectoris; E78.5 Hyperlipidemia, unspecified; D64.9 Anemia, unspecified; D69.6 Thrombocytopenia, unspecified; Y84.8 Other medical procedures as the cause of abnormal reaction of the patient, or of later complication, without mention of misadventure at the time of the procedure; E03.9 Hypothyroidism, unspecified; Z99.2 Dependence on renal dialysis; Z95.1 Presence of aortocoronary bypass graft; Z79.899 Other long term (current) drug therapy
CPT/HCPCS: 36415; 36600; 70450; 71045; 80048; 80053; 80076; 80202; 81001; 82803; 82948; 83605; 83735; 83880; 84100; 84439; 84443; 84484; 85025; 85610; 85730; 86704; 86706; 86708; 86709; 86803; 87040; 87081; 87086; 87186; 87340; 92526; 93005; 93308; 93971; 94640; 96365; 97112; 97163-GP; 97530; 97605; 99291; J1644; J1815; J2001; J2270; J2543; J3370; J3475; J3490; J7030; J7060; J7613; Q0092; Q5106

== ENCOUNTER 2023-10-20 18:05 | Inpatient (IN) | payer OTHER, BC ==
[~2023-10-20] VITALS: Ht 182.9 cm; Wt 82.6 kg
[~2023-10-20 18:05] MED LIST changes: +ACET-2619 GT; +ALBU0.5S1 NEB; +ALBU3SOL83 IH; +APIX5TAB PO; +ATI.5 PO; +ATOR40TA40 PO; -AZIT250T4 PO; -CARV6.25 PO; +CARV6.252 PO; +DAPA10TA PO; +FAMO-90 PO; +GABA100C PO; +MAGN400S60 PO; +PIPE50SO5 IV; +QUET25TA PO; +ROB1 PO; +SENN-73 PO; +TAMS0.4C97 PO; +VOL25 PO; +XALOS OP
[2023-10-20 18:10] VITALS: BP 100/37; PULSE 43; RESP 16; O2SAT 100
[2023-10-20 19:23] LABS: BASOPHILS % (AUTO) 0.2 % (0.0-2.0); EOSINOPHILS # (AUTO) 0.1 K/uL (0-0.4); EOSINOPHILS % (AUTO) 2.5 % (0.0-4.0); HEMATOCRIT 24.6 % (36-52); LYMPHOCYTES # (AUTO) 1.6 K/uL (2.0-11.5); LYMPHOCYTES % (AUTO) 31.7 % (20.5-51.1); MEAN CORPUSCULAR HEMOGLOBIN 35 pg (27-31); MEAN CORPUSCULAR HGB CONC 33 g/dL (33-37); MONOCYTES # (AUTO) 0.5 K/uL (0.8-1.0); MONOCYTES % (AUTO) 9.4 % (1.7-9.3); NEUTROPHILS # (AUTO) 2.8 K/uL (1.8-7.7); NEUTROPHILS % (AUTO) 56.2 % (42.2-75.2); PLATELET COUNT (AUTO) 64 K/uL (140-450); RED BLOOD CELL COUNT(AUTO) 2.28 MIL/uL (4.20-6.10); RED CELL DISTRIBUTION WIDTH 21.4 % (11.6-13.7)
[2023-10-20 19:43] LABS: ALANINE AMINOTRANSFERASE 14 U/L (12-78); ALBUMIN 1.2 g/dL (3.4-5.0); ALKALINE PHOSPHATASE 73 U/L (50-136); ANION GAP 6.7 (8-16); ASPARTATE AMINOTRANSFERASE 28 U/L (15-37); CALCIUM 7.2 mg/dL (8.5-10.1); CARBON DIOXIDE 29.7 mmol/L (21-32); CHLORIDE 102 mmol/L (98-107); CREATININE 3.7 mg/dL (0.6-1.3); GLUCOSE 140 mg/dL (74-106); POTASSIUM 3.4 mmol/L (3.5-5.1); SODIUM SERUM 135 mmol/L (136-145); TOTAL BILIRUBIN 0.3 mg/dL (0.0-1.0); TOTAL PROTEIN, SERUM 5.9 g/dL (6.4-8.2); UREA NITROGEN, BLOOD 16 mg/dL (7-18)
[2023-10-20] MEDS ORDERED: LISI40TA12 PO (19:53)
[2023-10-20] MEDS: NACL 0.9% 500 ML IV ONE ×2 (20:08→21:34)
[2023-10-20 20:43] LABS: APPEARANCE,URINE CLOUDY (CLEAR); BILIRUBIN,URINE 1+ (NEGATIVE); BLOOD, URINE 3+ (NEGATIVE); COLOR,URINE BROWN (YELLOW); LEUKOCYTE ESTERASE ,URINE 3+ (NEGATIVE); NITRITE, URINE POSITIVE (NEGATIVE); PROTEIN,URINE 3+ (NEGATIVE); UGLUCOSE NEGATIVE (NEGATIVE); UROBILINOGEN,URINE 0.2 EU/dL (0.2 - 1)
[2023-10-20] MEDS ORDERED: HUM SUBQ (20:45)
[2023-10-20 20:54] LABS: ICTOTEST NEGATIVE (NEGATIVE)
[2023-10-20 20:57] LABS: RBC,URINE 50-80 /HPF (0-5)
[2023-10-20] MEDS ORDERED: NOREPINEPHRINE 4 MG/4 ML VIAL IV ONE ×2 (20:57→21:01)
[2023-10-20 20:58] LABS: BACTERIA,URINE None Seen /HPF (None Seen); MUCUS,URINE 2+ /LPF (None Seen); SQUAMOUS EPITHELIAL CELL,UR 0-3 (FEW) /LPF (0-3 (FEW)); WBC,URINE 20-60 /HPF (0-5)
[2023-10-20] MEDS: NOREPINEPHRINE 8 MG in DEXTROSE 5% 250 ML IV PRN (21:05)
[2023-10-20] MEDS ORDERED: ONDANSETRON 4 MG/2 ML VIAL IVP PRN (21:20)
[2023-10-20] MEDS ORDERED: VANCOMYCIN PER PHARMACY MC PRN (21:25)
[2023-10-20] MEDS ORDERED: PIPERACILLIN/TAZOBACTAM 2.25 GM VIAL IV ONE (21:27)
[2023-10-20 21:37] LABS: LACTIC ACID 1.6 mmol/L (0.4-2.0)
[2023-10-20] MEDS: PIPERACILLIN/TAZOBACTAM 2.25 GM in DEXTROSE 5% 50 ML IV ONE (21:42)
[2023-10-20] MEDS ORDERED: DOPamine 400 MG/D5W PREMIX 250 ML IV ONE (22:13)
[2023-10-20] MEDS: DOPamine 400 MG/D5W PREMIX 250 ML IV PRN (22:30)
[2023-10-20] MEDS ORDERED: VANCOMYCIN 1,000 MG VIAL ONE (23:35)
[2023-10-20] MEDS: VANCOMYCIN 1,000 MG in DEXTROSE 5% 250 ML IV ONE (23:49)
[2023-10-21] VITALS (19 sets, daily range): BP systolic 90–146; BP diastolic 37–103; PULSE 52–98; RESP 13–24; TEMP 96.9–98.2; O2SAT 93–100
[2023-10-21 02:20] LABS: FLU A ANTIGEN POSITIVE (NEGATIVE); FLU B ANTIGEN NEGATIVE (NEGATIVE)
[2023-10-21] MEDS ORDERED: PIPERACILLIN/TAZOBACTAM 2.25 GM VIAL IV ONE (06:08)
[2023-10-21] MEDS: PIPERACILLIN/TAZOBACTAM 2.25 GM in DEXTROSE 5% 50 ML IV SCH (06:16)
[2023-10-21 06:33] LABS: BASOPHILS # (AUTO) 0.1 K/uL (0.00-0.22); BASOPHILS % (AUTO) 0.8 % (0.0-2.0); EOSINOPHILS # (AUTO) 0.2 K/uL (0-0.4); EOSINOPHILS % (AUTO) 1.5 % (0.0-4.0); HEMATOCRIT 28.6 % (36-52); HEMOGLOBIN 9.3 g/dL (12.0-18.0); LYMPHOCYTES # (AUTO) 1.7 K/uL (2.0-11.5); LYMPHOCYTES % (AUTO) 15.7 % (20.5-51.1); MEAN CORPUSCULAR HEMOGLOBIN 35 pg (27-31); MEAN CORPUSCULAR HGB CONC 33 g/dL (33-37); MEAN CORPUSCULAR VOLUME 107.9 fL (80-94); MONOCYTES # (AUTO) 0.9 K/uL (0.8-1.0); MONOCYTES % (AUTO) 8.5 % (1.7-9.3); NEUTROPHILS # (AUTO) 7.9 K/uL (1.8-7.7); NEUTROPHILS % (AUTO) 73.5 % (42.2-75.2); PLATELET COUNT (AUTO) 88 K/uL (140-450); RED BLOOD CELL COUNT(AUTO) 2.65 MIL/uL (4.20-6.10); WHITE BLOOD COUNT (AUTO) 10.8 K/uL (4.8-10.8)
[2023-10-21 06:54] LABS: ANION GAP 9.8 (8-16); CALCIUM 7.2 mg/dL (8.5-10.1); CARBON DIOXIDE 28.5 mmol/L (21-32); CHLORIDE 101 mmol/L (98-107); CREATININE 3.8 mg/dL (0.6-1.3); GLUCOSE 168 mg/dL (74-106); POTASSIUM 3.3 mmol/L (3.5-5.1); SODIUM SERUM 136 mmol/L (136-145); UREA NITROGEN, BLOOD 16 mg/dL (7-18)
[2023-10-21] MEDS: BLOOD GLUCOSE MONITORING 1 DEV DEV FS SCH (07:44)
[2023-10-21] MEDS: INSULIN LISPRO SLIDING SCALE 100 UNITS/ML VIAL SUBQ PRN (07:57)
[2023-10-21] MEDS: OSELTAMIVIR PHOSPHATE 30 MG CAP PO SCH (09:00)
[2023-10-21] MEDS ORDERED: ALBUMIN HUMAN 25% 100 ML IV ONE (09:45)
[2023-10-21] MEDS: ALBUMIN HUMAN 25% 100 ML IV SCH (10:00)
[2023-10-21 11:03] LABS: BLOOD GAS BASE EXCESS -2.4 mmol/L (-2.0-2.0); BLOOD GAS HCO3 23.4 mmol/L (22-26); BLOOD GAS PCO2 45.2 mmHg (35-45); BLOOD GAS PH 7.332 (7.35-7.45); BLOOD GAS PO2 110.2 mmHg (75-100)
[2023-10-21 11:04] LABS: BLOOD GAS O2 SAT% 97.7 % (92.0-98.5)
[2023-10-21] MEDS ORDERED: NOREPINEPHRINE 16 MG in DEXTROSE 5% 250 ML IV PRN (13:30)
[2023-10-21] MEDS: NOREPINEPHRINE 8 MG in DEXTROSE 5% 250 ML IV PRN (14:21)
[2023-10-21] MEDS: ACETAMINOPHEN 325 MG TAB PO PRN (17:02)
[2023-10-21] MEDS: POTASSIUM CHLORIDE 20% 40 MEQ/15 ML UDC PO ONE (20:50)
[2023-10-21] MEDS: ATORVASTATIN 20 MG TAB PO SCH (20:50)
[2023-10-21] MEDS: APIXABAN 2.5 MG TAB PO SCH (20:51)
[2023-10-21] MEDS: DOCUSATE SODIUM 100 MG GELCAP PO SCH (20:54)
[2023-10-21] MEDS ORDERED: APIXABAN 2.5 MG TAB PO SCH (21:00)
[2023-10-21] MEDS: CALCIUM GLUC 1 GM/50 mL NS BAG 50 ML IV ONE (21:12)
[2023-10-22] VITALS (26 sets, daily range): BP systolic 86–149; BP diastolic 38–61; PULSE 45–114; RESP 12–23; TEMP 96.8–97.8; O2SAT 81–100
[2023-10-22 06:38] LABS: BASOPHILS # (AUTO) 0.1 K/uL (0.00-0.22); EOSINOPHILS # (AUTO) 0.3 K/uL (0-0.4); HEMOGLOBIN 7.6 g/dL (12.0-18.0)
[2023-10-22 06:39] LABS: ALANINE AMINOTRANSFERASE 11 U/L (12-78); ALBUMIN 1.4 g/dL (3.4-5.0); ALKALINE PHOSPHATASE 67 U/L (50-136); ANION GAP 8.4 (8-16); ASPARTATE AMINOTRANSFERASE 18 U/L (15-37); CALCIUM 6.4 mg/dL (8.5-10.1); CARBON DIOXIDE 29.1 mmol/L (21-32); CHLORIDE 101 mmol/L (98-107); GLUCOSE 107 mg/dL (74-106); POTASSIUM 3.5 mmol/L (3.5-5.1); SODIUM SERUM 135 mmol/L (136-145); TOTAL BILIRUBIN 0.4 mg/dL (0.0-1.0); UREA NITROGEN, BLOOD 21 mg/dL (7-18); VANCOMYCIN,RANDOM 24.7 ug/ml
[2023-10-22 06:50] LABS: BASOPHILS % (AUTO) 0.4 % (0.0-2.0); EOSINOPHILS % (AUTO) 2.4 % (0.0-4.0); HEMATOCRIT 23.8 % (36-52); LYMPHOCYTES # (AUTO) 4.1 K/uL (2.0-11.5); LYMPHOCYTES % (AUTO) 28.2 % (20.5-51.1); MEAN CORPUSCULAR HEMOGLOBIN 35 pg (27-31); MEAN CORPUSCULAR HGB CONC 32 g/dL (33-37); MEAN CORPUSCULAR VOLUME 108.6 fL (80-94); MONOCYTES # (AUTO) 1.3 K/uL (0.8-1.0); NEUTROPHILS # (AUTO) 8.7 K/uL (1.8-7.7); PLATELET COUNT (AUTO) 87 K/uL (140-450); RED BLOOD CELL COUNT(AUTO) 2.19 MIL/uL (4.20-6.10); RED CELL DISTRIBUTION WIDTH 20.8 % (11.6-13.7); WHITE BLOOD COUNT (AUTO) 14.5 K/uL (4.8-10.8)
[2023-10-22 06:54] LABS: CREATININE 4.4 mg/dL (0.6-1.3)
[2023-10-22] MEDS: FAMOTIDINE 20 MG TAB PO SCH (09:01)
[2023-10-22] MEDS: VIT-B COMP/VIT-C/FOLIC ACID 1 TAB PO SCH (09:01)
[2023-10-22] MEDS: ASCORBIC ACID 500 MG TAB PO SCH (09:01)
[2023-10-22] MEDS: GABAPENTIN 100 MG CAP PO SCH (09:01)
[2023-10-22] MEDS: TAMSULOSIN 0.4 MG CAP PO SCH (09:01)
[2023-10-22] MEDS: CALCIUM CHLORIDE 10% 1,000 MG in NACL 0.9% 100 ML IV SCH (13:18)
[2023-10-23] VITALS (25 sets, daily range): BP systolic 96–139; BP diastolic 36–74; PULSE 76–111; RESP 14–33; TEMP 97.1–97.6; O2SAT 87–100
[2023-10-23 06:53] LABS: BASOPHILS % (AUTO) 0.5 % (0.0-2.0); EOSINOPHILS # (AUTO) 0.3 K/uL (0-0.4); EOSINOPHILS % (AUTO) 3.1 % (0.0-4.0); HEMATOCRIT 25.2 % (36-52); HEMOGLOBIN 8.4 g/dL (12.0-18.0); LYMPHOCYTES # (AUTO) 2.2 K/uL (2.0-11.5); MEAN CORPUSCULAR HEMOGLOBIN 35 pg (27-31); MEAN CORPUSCULAR HGB CONC 33 g/dL (33-37); MEAN CORPUSCULAR VOLUME 106.4 fL (80-94); MONOCYTES # (AUTO) 0.8 K/uL (0.8-1.0); MONOCYTES % (AUTO) 9.6 % (1.7-9.3); NEUTROPHILS % (AUTO) 59.8 % (42.2-75.2); PLATELET COUNT (AUTO) 73 K/uL (140-450); RED BLOOD CELL COUNT(AUTO) 2.37 MIL/uL (4.20-6.10); RED CELL DISTRIBUTION WIDTH 20.9 % (11.6-13.7); WHITE BLOOD COUNT (AUTO) 8.3 K/uL (4.8-10.8)
[2023-10-23 06:54] LABS: ALANINE AMINOTRANSFERASE 12 U/L (12-78); ALBUMIN 1.4 g/dL (3.4-5.0); ALKALINE PHOSPHATASE 82 U/L (50-136); ANION GAP 10.6 (8-16); ASPARTATE AMINOTRANSFERASE 19 U/L (15-37); CALCIUM 7.6 mg/dL (8.5-10.1); CARBON DIOXIDE 29.1 mmol/L (21-32); CHLORIDE 100 mmol/L (98-107); CREATININE 2.9 mg/dL (0.6-1.3); GLUCOSE 117 mg/dL (74-106); POTASSIUM 3.7 mmol/L (3.5-5.1); SODIUM SERUM 136 mmol/L (136-145); TOTAL BILIRUBIN 0.5 mg/dL (0.0-1.0); TOTAL PROTEIN, SERUM 6.6 g/dL (6.4-8.2); UREA NITROGEN, BLOOD 12 mg/dL (7-18)
[2023-10-24] VITALS (39 sets, daily range): BP systolic 84–161; BP diastolic 23–72; PULSE 80–121; RESP 20–25; TEMP 96.7–99.8; O2SAT 93–100
[2023-10-24 05:52] LABS: BASOPHILS % (AUTO) 0.6 % (0.0-2.0); EOSINOPHILS # (AUTO) 0.2 K/uL (0-0.4); EOSINOPHILS % (AUTO) 3.4 % (0.0-4.0); LYMPHOCYTES # (AUTO) 2.3 K/uL (2.0-11.5); LYMPHOCYTES % (AUTO) 38.3 % (20.5-51.1); MEAN CORPUSCULAR HEMOGLOBIN 35 pg (27-31); MEAN CORPUSCULAR HGB CONC 33 g/dL (33-37); MEAN CORPUSCULAR VOLUME 106.4 fL (80-94); MONOCYTES # (AUTO) 0.6 K/uL (0.8-1.0); MONOCYTES % (AUTO) 9.9 % (1.7-9.3); NEUTROPHILS # (AUTO) 2.9 K/uL (1.8-7.7); NEUTROPHILS % (AUTO) 47.8 % (42.2-75.2); PLATELET COUNT (AUTO) 61 K/uL (140-450); RED BLOOD CELL COUNT(AUTO) 1.65 MIL/uL (4.20-6.10); RED CELL DISTRIBUTION WIDTH 21.2 % (11.6-13.7)
[2023-10-24 05:54] LABS: HEMATOCRIT 17.5 % (36-52); HEMOGLOBIN 5.8 g/dL (12.0-18.0)
[2023-10-24 06:23] LABS: ALANINE AMINOTRANSFERASE 10 U/L (12-78); ALBUMIN 1.2 g/dL (3.4-5.0); ALKALINE PHOSPHATASE 69 U/L (50-136); ANION GAP 9.7 (8-16); ASPARTATE AMINOTRANSFERASE 18 U/L (15-37); CALCIUM 7.3 mg/dL (8.5-10.1); CARBON DIOXIDE 29.1 mmol/L (21-32); CHLORIDE 101 mmol/L (98-107); CREATININE 3.8 mg/dL (0.6-1.3); GLUCOSE 135 mg/dL (74-106); POTASSIUM 3.8 mmol/L (3.5-5.1); SODIUM SERUM 136 mmol/L (136-145); TOTAL BILIRUBIN 0.5 mg/dL (0.0-1.0); TOTAL PROTEIN, SERUM 5.5 g/dL (6.4-8.2); UREA NITROGEN, BLOOD 18 mg/dL (7-18)
[2023-10-24 08:47] LABS: INR 1.09 (0.8-1.2); PARTIAL THROMBOPLASTIN TIME 35.8 secs (22-35.6); PROTHROMBIN TIME 11.4 secs (10.8-13.4)
[2023-10-24] MEDS: CHLORHEXADINE GLUC 2% CLOTH TP SCH (09:00)
[2023-10-24] MEDS: MUPIROCIN CA NASAL 2% 1GM TUBE NS SCH (09:36)
[2023-10-24] MEDS: EPOETIN ALFA-EPBX 10,000 UNITS/ML VIAL IV SCH (09:55)
[2023-10-24] MEDS ORDERED: PHYTONADIONE 10 MG in NACL 0.9% 50 ML IV ONE (14:35)
[2023-10-24 16:00] LABS: BASOPHILS % (AUTO) 0.7 % (0.0-2.0); EOSINOPHILS # (AUTO) 0.2 K/uL (0-0.4); EOSINOPHILS % (AUTO) 3.1 % (0.0-4.0); LYMPHOCYTES # (AUTO) 3.3 K/uL (2.0-11.5); LYMPHOCYTES % (AUTO) 46.4 % (20.5-51.1); MEAN CORPUSCULAR HEMOGLOBIN 35 pg (27-31); MEAN CORPUSCULAR HGB CONC 33 g/dL (33-37); MEAN CORPUSCULAR VOLUME 106.6 fL (80-94); MONOCYTES # (AUTO) 0.7 K/uL (0.8-1.0); MONOCYTES % (AUTO) 9.6 % (1.7-9.3); NEUTROPHILS # (AUTO) 2.8 K/uL (1.8-7.7); NEUTROPHILS % (AUTO) 40.2 % (42.2-75.2); PLATELET COUNT (AUTO) 61 K/uL (140-450); RED BLOOD CELL COUNT(AUTO) 1.33 MIL/uL (4.20-6.10); RED CELL DISTRIBUTION WIDTH 21.2 % (11.6-13.7); WHITE BLOOD COUNT (AUTO) 7.1 K/uL (4.8-10.8)
[2023-10-24 16:15] LABS: INR 1.09 (0.8-1.2); PARTIAL THROMBOPLASTIN TIME 34.7 secs (22-35.6); PROTHROMBIN TIME 11.4 secs (10.8-13.4)
[2023-10-24 16:44] LABS: HEMOGLOBIN 4.7 g/dL (12.0-18.0)
[2023-10-24 16:45] LABS: HEMATOCRIT 14.2 % (36-52)
[2023-10-24] MEDS: PROTHROMBIN COMPLEX HUMAN 500 UNITS KIT IV SCH (16:50)
[2023-10-25] VITALS (25 sets, daily range): BP systolic 80–148; BP diastolic 40–82; PULSE 70–111; RESP 16–24; TEMP 97.2–99.8; O2SAT 96–100
[2023-10-25 06:00] LABS: BASOPHILS # (AUTO) 0.1 K/uL (0.00-0.22); BASOPHILS % (AUTO) 1.1 % (0.0-2.0); EOSINOPHILS # (AUTO) 0.2 K/uL (0-0.4); EOSINOPHILS % (AUTO) 2.5 % (0.0-4.0); HEMATOCRIT 25.9 % (36-52); HEMOGLOBIN 9.3 g/dL (12.0-18.0); LYMPHOCYTES # (AUTO) 2.9 K/uL (2.0-11.5); LYMPHOCYTES % (AUTO) 40.4 % (20.5-51.1); MEAN CORPUSCULAR HEMOGLOBIN 34 pg (27-31); MEAN CORPUSCULAR HGB CONC 36 g/dL (33-37); MEAN CORPUSCULAR VOLUME 94.3 fL (80-94); MONOCYTES # (AUTO) 0.9 K/uL (0.8-1.0); MONOCYTES % (AUTO) 12.1 % (1.7-9.3); NEUTROPHILS # (AUTO) 3.1 K/uL (1.8-7.7); NEUTROPHILS % (AUTO) 43.9 % (42.2-75.2); PLATELET COUNT (AUTO) 34 K/uL (140-450); RED BLOOD CELL COUNT(AUTO) 2.75 MIL/uL (4.20-6.10); RED CELL DISTRIBUTION WIDTH 20.7 % (11.6-13.7); WHITE BLOOD COUNT (AUTO) 7.1 K/uL (4.8-10.8)
[2023-10-25 06:08] LABS: HEPATITIS A ANTIBODY IGM Negative (Negative); HEPATITIS B CORE AB TOTAL Negative (Negative); HEPATITIS B CORE, IGM Negative (Negative); HEPATITIS B SURFACE ANTIBODY Reactive (.); HEPATITIS B SURFACE ANTIGEN Negative (Negative); HEPATITIS C VIRUS ANTIBODY Non Reactive (Non Reactive)
[2023-10-25 06:53] LABS: ALANINE AMINOTRANSFERASE 11 U/L (12-78); ALBUMIN 1.3 g/dL (3.4-5.0); ALKALINE PHOSPHATASE 73 U/L (50-136); ANION GAP 10.6 (8-16); ASPARTATE AMINOTRANSFERASE 19 U/L (15-37); CALCIUM 7.3 mg/dL (8.5-10.1); CARBON DIOXIDE 28.3 mmol/L (21-32); CHLORIDE 102 mmol/L (98-107); CREATININE 3.2 mg/dL (0.6-1.3); GLUCOSE 131 mg/dL (74-106); POTASSIUM 3.9 mmol/L (3.5-5.1); SODIUM SERUM 137 mmol/L (136-145); TOTAL BILIRUBIN 0.8 mg/dL (0.0-1.0); TOTAL PROTEIN, SERUM 5.8 g/dL (6.4-8.2); UREA NITROGEN, BLOOD 15 mg/dL (7-18)
[2023-10-25 14:03] LABS: HEPATITIS A ANTIBODY TOTAL Positive (Negative)
[2023-10-26] VITALS (25 sets, daily range): BP systolic 63–172; BP diastolic 28–79; PULSE 39–98; RESP 16–22; TEMP 97.4–98.9; O2SAT 96–100
[2023-10-26 06:30] LABS: ANION GAP 10.2 (8-16); CALCIUM 7.5 mg/dL (8.5-10.1); CARBON DIOXIDE 27.6 mmol/L (21-32); CHLORIDE 101 mmol/L (98-107); GLUCOSE 132 mg/dL (74-106); POTASSIUM 3.8 mmol/L (3.5-5.1); SODIUM SERUM 135 mmol/L (136-145); UREA NITROGEN, BLOOD 20 mg/dL (7-18)
[2023-10-26 06:31] LABS: CREATININE 4.1 mg/dL (0.6-1.3)
[2023-10-26 09:35] LABS: BASOPHILS # (AUTO) 0.1 K/uL (0.00-0.22); BASOPHILS % (AUTO) 1.3 % (0.0-2.0); EOSINOPHILS # (AUTO) 0.2 K/uL (0-0.4); EOSINOPHILS % (AUTO) 3.3 % (0.0-4.0); HEMATOCRIT 27.7 % (36-52); HEMOGLOBIN 9.6 g/dL (12.0-18.0); LYMPHOCYTES # (AUTO) 2.6 K/uL (2.0-11.5); LYMPHOCYTES % (AUTO) 39.4 % (20.5-51.1); MEAN CORPUSCULAR HEMOGLOBIN 33 pg (27-31); MEAN CORPUSCULAR HGB CONC 35 g/dL (33-37); MEAN CORPUSCULAR VOLUME 96.5 fL (80-94); MONOCYTES # (AUTO) 1.1 K/uL (0.8-1.0); MONOCYTES % (AUTO) 16.5 % (1.7-9.3); NEUTROPHILS # (AUTO) 2.6 K/uL (1.8-7.7); NEUTROPHILS % (AUTO) 39.5 % (42.2-75.2); PLATELET COUNT (AUTO) 40 K/uL (140-450); RED BLOOD CELL COUNT(AUTO) 2.87 MIL/uL (4.20-6.10); RED CELL DISTRIBUTION WIDTH 21.5 % (11.6-13.7); WHITE BLOOD COUNT (AUTO) 6.5 K/uL (4.8-10.8)
[2023-10-26] MEDS: ATROPINE 1 MG/10 ML SYR IVP ONE (12:15)
[2023-10-26] MEDS: ALBUMIN HUMAN 25% 100 ML IV ONE (17:02)
[2023-10-27] VITALS (26 sets, daily range): BP systolic 67–167; BP diastolic 41–94; PULSE 69–94; RESP 16–22; TEMP 97.1–98.9; O2SAT 97–100
[2023-10-27 05:11] LABS: BASOPHILS # (AUTO) 0.1 K/uL (0.00-0.22); BASOPHILS % (AUTO) 0.9 % (0.0-2.0); EOSINOPHILS # (AUTO) 0.4 K/uL (0-0.4); EOSINOPHILS % (AUTO) 5.2 % (0.0-4.0); HEMATOCRIT 28.2 % (36-52); HEMOGLOBIN 9.9 g/dL (12.0-18.0); LYMPHOCYTES # (AUTO) 2.6 K/uL (2.0-11.5); LYMPHOCYTES % (AUTO) 32.5 % (20.5-51.1); MEAN CORPUSCULAR HEMOGLOBIN 34 pg (27-31); MEAN CORPUSCULAR HGB CONC 35 g/dL (33-37); MEAN CORPUSCULAR VOLUME 96.6 fL (80-94); MONOCYTES % (AUTO) 12.1 % (1.7-9.3); NEUTROPHILS # (AUTO) 3.9 K/uL (1.8-7.7); NEUTROPHILS % (AUTO) 49.3 % (42.2-75.2); PLATELET COUNT (AUTO) 39 K/uL (140-450); RED BLOOD CELL COUNT(AUTO) 2.92 MIL/uL (4.20-6.10); RED CELL DISTRIBUTION WIDTH 21.5 % (11.6-13.7)
[2023-10-27 05:46] LABS: ANION GAP 9.5 (8-16); CALCIUM 7.8 mg/dL (8.5-10.1); CARBON DIOXIDE 30.1 mmol/L (21-32); CHLORIDE 104 mmol/L (98-107); CREATININE 2.9 mg/dL (0.6-1.3); GLUCOSE 124 mg/dL (74-106); POTASSIUM 3.6 mmol/L (3.5-5.1); SODIUM SERUM 140 mmol/L (136-145); UREA NITROGEN, BLOOD 12 mg/dL (7-18)
[2023-10-27] MEDS: VANCOMYCIN 750 MG in DEXTROSE 5% 250 ML IV SCH (10:02)
[2023-10-27] MEDS: LEVOTHYROXINE 0.1 MG TAB PO SCH (12:00)
[2023-10-27] MEDS: MIDODRINE 5 MG TAB PO SCH (13:00)
[2023-10-28] VITALS (31 sets, daily range): BP systolic 93–134; BP diastolic 32–62; PULSE 62–101; RESP 19–36; TEMP 97.1–98.2; O2SAT 95–100
[2023-10-28 06:04] LABS: ANION GAP 7.4 (8-16); CALCIUM 7.6 mg/dL (8.5-10.1); CARBON DIOXIDE 30.1 mmol/L (21-32); CHLORIDE 101 mmol/L (98-107); CREATININE 3.7 mg/dL (0.6-1.3); GLUCOSE 112 mg/dL (74-106); POTASSIUM 3.5 mmol/L (3.5-5.1); SODIUM SERUM 135 mmol/L (136-145); UREA NITROGEN, BLOOD 16 mg/dL (7-18)
[2023-10-28 06:20] LABS: BASOPHILS # (AUTO) 0.1 K/uL (0.00-0.22); BASOPHILS % (AUTO) 0.7 % (0.0-2.0); EOSINOPHILS # (AUTO) 0.5 K/uL (0-0.4); EOSINOPHILS % (AUTO) 6.5 % (0.0-4.0); HEMATOCRIT 28.3 % (36-52); HEMOGLOBIN 9.8 g/dL (12.0-18.0); LYMPHOCYTES % (AUTO) 40.3 % (20.5-51.1); MEAN CORPUSCULAR HEMOGLOBIN 34 pg (27-31); MEAN CORPUSCULAR HGB CONC 35 g/dL (33-37); MEAN CORPUSCULAR VOLUME 97.3 fL (80-94); MONOCYTES # (AUTO) 0.6 K/uL (0.8-1.0); MONOCYTES % (AUTO) 8.5 % (1.7-9.3); NEUTROPHILS # (AUTO) 3.3 K/uL (1.8-7.7); PLATELET COUNT (AUTO) 37 K/uL (140-450); RED BLOOD CELL COUNT(AUTO) 2.91 MIL/uL (4.20-6.10); RED CELL DISTRIBUTION WIDTH 21.7 % (11.6-13.7); WHITE BLOOD COUNT (AUTO) 7.5 K/uL (4.8-10.8)
[2023-10-28] MEDS ORDERED: ALGINATE ROPE MC PRN (11:25)
[2023-10-28] MEDS: GAUZE TP SCH (13:00)
[2023-10-28] MEDS: ALGINATE ROPE MC SCH (13:00)
[2023-10-28] MEDS: FLUCONAZOLE 200 MG/NS PREMIX 100 ML IV SCH (23:27)
[2023-10-29] VITALS (35 sets, daily range): BP systolic 77–130; BP diastolic 31–67; PULSE 54–90; RESP 13–39; TEMP 97–98.6; O2SAT 92–100
[2023-10-29 07:03] LABS: ANION GAP 6.2 (8-16); CARBON DIOXIDE 31.7 mmol/L (21-32); CHLORIDE 106 mmol/L (98-107); CREATININE 2.6 mg/dL (0.6-1.3); GLUCOSE 145 mg/dL (74-106); POTASSIUM 3.9 mmol/L (3.5-5.1); SODIUM SERUM 140 mmol/L (136-145); UREA NITROGEN, BLOOD 9 mg/dL (7-18)
[2023-10-29 09:49] LABS: BASOPHILS # (AUTO) 0.1 K/uL (0.00-0.22); BASOPHILS % (AUTO) 0.9 % (0.0-2.0); EOSINOPHILS # (AUTO) 0.3 K/uL (0-0.4); EOSINOPHILS % (AUTO) 4.3 % (0.0-4.0); HEMOGLOBIN 9.6 g/dL (12.0-18.0); LYMPHOCYTES # (AUTO) 3.5 K/uL (2.0-11.5); LYMPHOCYTES % (AUTO) 43.4 % (20.5-51.1); MEAN CORPUSCULAR HEMOGLOBIN 34 pg (27-31); MEAN CORPUSCULAR HGB CONC 34 g/dL (33-37); MEAN CORPUSCULAR VOLUME 98.2 fL (80-94); MONOCYTES # (AUTO) 0.6 K/uL (0.8-1.0); MONOCYTES % (AUTO) 7.2 % (1.7-9.3); NEUTROPHILS # (AUTO) 3.5 K/uL (1.8-7.7); NEUTROPHILS % (AUTO) 44.2 % (42.2-75.2); PLATELET COUNT (AUTO) 50 K/uL (140-450); RED BLOOD CELL COUNT(AUTO) 2.86 MIL/uL (4.20-6.10); RED CELL DISTRIBUTION WIDTH 21.7 % (11.6-13.7)
[2023-10-29 10:07] LABS: ALANINE AMINOTRANSFERASE 13 U/L (12-78); ALKALINE PHOSPHATASE 90 U/L (50-136); ANION GAP 6.6 (8-16); ASPARTATE AMINOTRANSFERASE 29 U/L (15-37); CARBON DIOXIDE 32.4 mmol/L (21-32); CHLORIDE 105 mmol/L (98-107); CREATININE 2.8 mg/dL (0.6-1.3); GLUCOSE 152 mg/dL (74-106); SODIUM SERUM 140 mmol/L (136-145); TOTAL BILIRUBIN 0.4 mg/dL (0.0-1.0); TOTAL PROTEIN, SERUM 5.9 g/dL (6.4-8.2); UREA NITROGEN, BLOOD 10 mg/dL (7-18)
[2023-10-29 10:22] LABS: ALBUMIN 1.3 g/dL (3.4-5.0)
[2023-10-29] MEDS: ALBUMIN HUMAN 25% 50 ML IV SCH (10:45)
[2023-10-29 11:26] LABS: INR 1.05 (0.8-1.2); PARTIAL THROMBOPLASTIN TIME 33.4 secs (22-35.6)
[2023-10-29 13:37] LABS: LACTIC ACID 1.1 mmol/L (0.4-2.0)
[2023-10-30] VITALS (25 sets, daily range): BP systolic 100–145; BP diastolic 33–63; PULSE 49–60; RESP 13–21; TEMP 97–97.5; O2SAT 90–100
[2023-10-30 06:42] LABS: ANION GAP 7.1 (8-16); CALCIUM 7.5 mg/dL (8.5-10.1); CARBON DIOXIDE 30.4 mmol/L (21-32); CHLORIDE 106 mmol/L (98-107); CREATININE 3.4 mg/dL (0.6-1.3); GLUCOSE 143 mg/dL (74-106); POTASSIUM 3.5 mmol/L (3.5-5.1); SODIUM SERUM 140 mmol/L (136-145); UREA NITROGEN, BLOOD 14 mg/dL (7-18)
[2023-10-30 06:45] LABS: BASOPHILS # (AUTO) 0.1 K/uL (0.00-0.22); BASOPHILS % (AUTO) 0.9 % (0.0-2.0); EOSINOPHILS # (AUTO) 0.3 K/uL (0-0.4); EOSINOPHILS % (AUTO) 3.7 % (0.0-4.0); HEMATOCRIT 24.4 % (36-52); HEMOGLOBIN 8.2 g/dL (12.0-18.0); LYMPHOCYTES # (AUTO) 3.5 K/uL (2.0-11.5); LYMPHOCYTES % (AUTO) 46.1 % (20.5-51.1); MEAN CORPUSCULAR HEMOGLOBIN 34 pg (27-31); MEAN CORPUSCULAR HGB CONC 33 g/dL (33-37); MEAN CORPUSCULAR VOLUME 100.1 fL (80-94); MONOCYTES # (AUTO) 0.6 K/uL (0.8-1.0); MONOCYTES % (AUTO) 7.4 % (1.7-9.3); NEUTROPHILS # (AUTO) 3.2 K/uL (1.8-7.7); NEUTROPHILS % (AUTO) 41.9 % (42.2-75.2); PLATELET COUNT (AUTO) 57 K/uL (140-450); RED BLOOD CELL COUNT(AUTO) 2.44 MIL/uL (4.20-6.10); RED CELL DISTRIBUTION WIDTH 22.4 % (11.6-13.7); WHITE BLOOD COUNT (AUTO) 7.5 K/uL (4.8-10.8)
[2023-10-30] MEDS: MUPIROCIN CA NASAL 2% 1GM TUBE NS ONE (07:38)
[2023-10-30] MEDS: FLUCONAZOLE 200 MG/NS PREMIX 100 ML IV SCH (21:05)
[2023-10-30] MEDS: DOCUSATE 100 MG/10 ML UDC PO SCH (22:00)
[2023-10-31] VITALS (32 sets, daily range): BP systolic 84–138; BP diastolic 26–71; PULSE 47–74; RESP 12–20; TEMP 97.6–98.6; O2SAT 90–98
[2023-10-31 06:12] LABS: BASOPHILS # (AUTO) 0.1 K/uL (0.00-0.22); BASOPHILS % (AUTO) 0.7 % (0.0-2.0); EOSINOPHILS # (AUTO) 0.4 K/uL (0-0.4); EOSINOPHILS % (AUTO) 5.2 % (0.0-4.0); HEMATOCRIT 25.4 % (36-52); HEMOGLOBIN 8.5 g/dL (12.0-18.0); LYMPHOCYTES # (AUTO) 2.3 K/uL (2.0-11.5); LYMPHOCYTES % (AUTO) 29.5 % (20.5-51.1); MEAN CORPUSCULAR HEMOGLOBIN 34 pg (27-31); MEAN CORPUSCULAR HGB CONC 34 g/dL (33-37); MEAN CORPUSCULAR VOLUME 100.1 fL (80-94); MONOCYTES # (AUTO) 0.5 K/uL (0.8-1.0); MONOCYTES % (AUTO) 6.6 % (1.7-9.3); NEUTROPHILS # (AUTO) 4.4 K/uL (1.8-7.7); PLATELET COUNT (AUTO) 62 K/uL (140-450); RED BLOOD CELL COUNT(AUTO) 2.54 MIL/uL (4.20-6.10); RED CELL DISTRIBUTION WIDTH 22.3 % (11.6-13.7); WHITE BLOOD COUNT (AUTO) 7.7 K/uL (4.8-10.8)
[2023-10-31 06:51] LABS: ANION GAP 9.2 (8-16); CALCIUM 7.5 mg/dL (8.5-10.1); CARBON DIOXIDE 28.4 mmol/L (21-32); CHLORIDE 106 mmol/L (98-107); GLUCOSE 84 mg/dL (74-106); POTASSIUM 3.6 mmol/L (3.5-5.1); SODIUM SERUM 140 mmol/L (136-145); UREA NITROGEN, BLOOD 18 mg/dL (7-18)
[2023-10-31 06:54] LABS: CREATININE 4.1 mg/dL (0.6-1.3)
[2023-10-31] MEDS: ALBUMIN HUMAN 25% 100 ML IV SCH (11:21)
[2023-10-31] MEDS ORDERED: DOCUSATE 100 MG/10 ML UDC PO PRN (12:00)
[2023-11-01] VITALS (24 sets, daily range): BP systolic 96–132; BP diastolic 30–66; PULSE 40–101; RESP 12–22; TEMP 97–98.4; O2SAT 91–99
[2023-11-01 06:23] LABS: BASOPHILS # (AUTO) 0.1 K/uL (0.00-0.22); BASOPHILS % (AUTO) 0.7 % (0.0-2.0); EOSINOPHILS # (AUTO) 0.3 K/uL (0-0.4); EOSINOPHILS % (AUTO) 3.6 % (0.0-4.0); HEMATOCRIT 23.5 % (36-52); HEMOGLOBIN 7.9 g/dL (12.0-18.0); LYMPHOCYTES # (AUTO) 2.7 K/uL (2.0-11.5); LYMPHOCYTES % (AUTO) 32.7 % (20.5-51.1); MEAN CORPUSCULAR HEMOGLOBIN 34 pg (27-31); MEAN CORPUSCULAR HGB CONC 34 g/dL (33-37); MEAN CORPUSCULAR VOLUME 100.3 fL (80-94); MONOCYTES # (AUTO) 0.5 K/uL (0.8-1.0); MONOCYTES % (AUTO) 6.3 % (1.7-9.3); NEUTROPHILS # (AUTO) 4.7 K/uL (1.8-7.7); NEUTROPHILS % (AUTO) 56.7 % (42.2-75.2); PLATELET COUNT (AUTO) 54 K/uL (140-450); RED BLOOD CELL COUNT(AUTO) 2.34 MIL/uL (4.20-6.10); RED CELL DISTRIBUTION WIDTH 22.5 % (11.6-13.7); WHITE BLOOD COUNT (AUTO) 8.2 K/uL (4.8-10.8)
[2023-11-01 06:48] LABS: ANION GAP 5.4 (8-16); CALCIUM 7.7 mg/dL (8.5-10.1); CARBON DIOXIDE 30.4 mmol/L (21-32); CHLORIDE 108 mmol/L (98-107); CREATININE 3.6 mg/dL (0.6-1.3); GLUCOSE 126 mg/dL (74-106); POTASSIUM 3.8 mmol/L (3.5-5.1); SODIUM SERUM 140 mmol/L (136-145); UREA NITROGEN, BLOOD 15 mg/dL (7-18)
[2023-11-01] MEDS: MIDODRINE 5 MG TAB PO SCH (12:33)
[2023-11-02] VITALS (28 sets, daily range): BP systolic 84–121; BP diastolic 32–62; PULSE 37–82; RESP 12–24; TEMP 93.4–99.3; O2SAT 93–100
[2023-11-02] MEDS ORDERED: SODIUM BICARBONATE 8.4% 100 MEQ in NACL 0.45% 1,000 ML IV SCH (07:20)
[2023-11-02] MEDS: DEXTROSE 50% 50 ML SYR IVP PRN (08:02)
[2023-11-02] MEDS: HYDROCORTISONE 10 MG TAB PO SCH (10:39)
[2023-11-03] VITALS (24 sets, daily range): BP systolic 106–158; BP diastolic 39–72; PULSE 36–78; RESP 10–21; TEMP 93.4–98.3; O2SAT 96–100
[2023-11-03 05:44] LABS: BASOPHILS % (AUTO) 0.5 % (0.0-2.0); EOSINOPHILS # (AUTO) 0.2 K/uL (0-0.4); EOSINOPHILS % (AUTO) 2.1 % (0.0-4.0); HEMATOCRIT 23.5 % (36-52); HEMOGLOBIN 7.8 g/dL (12.0-18.0); LYMPHOCYTES # (AUTO) 3.3 K/uL (2.0-11.5); MEAN CORPUSCULAR HEMOGLOBIN 34 pg (27-31); MEAN CORPUSCULAR HGB CONC 33 g/dL (33-37); MEAN CORPUSCULAR VOLUME 102.2 fL (80-94); MONOCYTES # (AUTO) 0.6 K/uL (0.8-1.0); MONOCYTES % (AUTO) 7.9 % (1.7-9.3); NEUTROPHILS # (AUTO) 4.1 K/uL (1.8-7.7); NEUTROPHILS % (AUTO) 49.5 % (42.2-75.2); PLATELET COUNT (AUTO) 74 K/uL (140-450); RED CELL DISTRIBUTION WIDTH 22.8 % (11.6-13.7); WHITE BLOOD COUNT (AUTO) 8.2 K/uL (4.8-10.8)
[2023-11-03 06:14] LABS: ALANINE AMINOTRANSFERASE 14 U/L (12-78); ALBUMIN 1.5 g/dL (3.4-5.0); ALKALINE PHOSPHATASE 89 U/L (50-136); ANION GAP 7.4 (8-16); ASPARTATE AMINOTRANSFERASE 30 U/L (15-37); CALCIUM 7.6 mg/dL (8.5-10.1); CARBON DIOXIDE 31.5 mmol/L (21-32); CHLORIDE 104 mmol/L (98-107); GLUCOSE 184 mg/dL (74-106); POTASSIUM 3.9 mmol/L (3.5-5.1); SODIUM SERUM 139 mmol/L (136-145); TOTAL BILIRUBIN 0.3 mg/dL (0.0-1.0); TOTAL PROTEIN, SERUM 5.4 g/dL (6.4-8.2); UREA NITROGEN, BLOOD 12 mg/dL (7-18)
[2023-11-04] VITALS (12 sets, daily range): BP systolic 118–158; BP diastolic 40–52; PULSE 52–66; RESP 18; TEMP 96.8–97.1; O2SAT 100
[2023-11-04] MEDS ORDERED: FAMO20TA13 PO (08:39)
[2023-11-04] MEDS ORDERED: DOCU50LI8 PO (08:39)
[2023-11-04] MEDS ORDERED: NEP PO (08:39)
[2023-11-04] MEDS ORDERED: GLUC-805 FS (08:39)
[2023-11-04] MEDS ORDERED: GABA-636 PO (08:39)
[2023-11-04] MEDS ORDERED: HYDR-3926 PO (08:39)
[2023-11-04] MEDS ORDERED: TAMS0.4C96 PO (08:39)
[2023-11-04] MEDS ORDERED: PRO5 PO (08:39)
[2023-11-04] MEDS ORDERED: D50SYR IVP (08:39)
[2023-11-04] MEDS ORDERED: VITC500 PO (08:39)
[2023-11-04] MEDS ORDERED: ONDA2SOL45 IVP (08:39)
[2023-11-04] MEDS ORDERED: ATOR20TA40 PO (08:39)
[2023-11-04] MEDS ORDERED: SYN.1 PO (08:39)
[2023-11-04] MEDS ORDERED: HUMSLIDE SUBQ (08:45)
[2023-11-04 09:44] LABS: BASOPHILS % (AUTO) 0.7 % (0.0-2.0); EOSINOPHILS # (AUTO) 0.1 K/uL (0-0.4); EOSINOPHILS % (AUTO) 1.9 % (0.0-4.0); HEMATOCRIT 26.2 % (36-52); HEMOGLOBIN 8.7 g/dL (12.0-18.0); LYMPHOCYTES # (AUTO) 1.5 K/uL (2.0-11.5); LYMPHOCYTES % (AUTO) 28.6 % (20.5-51.1); MEAN CORPUSCULAR HEMOGLOBIN 34 pg (27-31); MEAN CORPUSCULAR HGB CONC 33 g/dL (33-37); MEAN CORPUSCULAR VOLUME 102.1 fL (80-94); MONOCYTES # (AUTO) 0.3 K/uL (0.8-1.0); MONOCYTES % (AUTO) 6.2 % (1.7-9.3); NEUTROPHILS # (AUTO) 3.3 K/uL (1.8-7.7); NEUTROPHILS % (AUTO) 62.6 % (42.2-75.2); PLATELET COUNT (AUTO) 63 K/uL (140-450); RED BLOOD CELL COUNT(AUTO) 2.56 MIL/uL (4.20-6.10); RED CELL DISTRIBUTION WIDTH 22.8 % (11.6-13.7); WHITE BLOOD COUNT (AUTO) 5.2 K/uL (4.8-10.8)
[2023-11-04 10:07] LABS: ALANINE AMINOTRANSFERASE 24 U/L (12-78); ALBUMIN 1.6 g/dL (3.4-5.0); ALKALINE PHOSPHATASE 99 U/L (50-136); ANION GAP 5.2 (8-16); ASPARTATE AMINOTRANSFERASE 40 U/L (15-37); CALCIUM 7.6 mg/dL (8.5-10.1); CARBON DIOXIDE 33.5 mmol/L (21-32); CHLORIDE 104 mmol/L (98-107); CREATININE 2.6 mg/dL (0.6-1.3); GLUCOSE 131 mg/dL (74-106); POTASSIUM 3.7 mmol/L (3.5-5.1); SODIUM SERUM 139 mmol/L (136-145); TOTAL BILIRUBIN 0.3 mg/dL (0.0-1.0); TOTAL PROTEIN, SERUM 5.9 g/dL (6.4-8.2); UREA NITROGEN, BLOOD 13 mg/dL (7-18)
== END 2023-11-04 15:30 | DRG 314 ==
LOC: MED 18:05 → MTU 21:20 → MIC 10-21 11:17 → MTU 11-03 18:20
PROVIDERS: ADMIT Student in an Organized Health Care Education/Training Program; ATTEND Student in an Organized Health Care Education/Training Program
PROC: 30233K1 Transfusion of Nonautologous Frozen Plasma into Peripheral Vein, Percutaneous Approach (ICD-10-PCS; 2023-10-23)
PROC: 30233N1 Transfusion of Nonautologous Red Blood Cells into Peripheral Vein, Percutaneous Approach (ICD-10-PCS; 2023-10-24)
PROC: 5A1D70Z Performance of Urinary Filtration, Intermittent, Less than 6 Hours Per Day (ICD-10-PCS; 2023-10-24)
PROC: 5A1D70Z Performance of Urinary Filtration, Intermittent, Less than 6 Hours Per Day (ICD-10-PCS; 2023-10-26)
PROC: 5A1D70Z Performance of Urinary Filtration, Intermittent, Less than 6 Hours Per Day (ICD-10-PCS; 2023-10-28)
PROC: 5A1D70Z Performance of Urinary Filtration, Intermittent, Less than 6 Hours Per Day (ICD-10-PCS; 2023-10-31)
PROC: 5A09357 Assistance with Respiratory Ventilation, Less than 24 Consecutive Hours, Continuous Positive Airway Pressure (ICD-10-PCS; principal; 2023-11-01)
PROC: 5A1D70Z Performance of Urinary Filtration, Intermittent, Less than 6 Hours Per Day (ICD-10-PCS; 2023-11-02)
PROC: 5A1D70Z Performance of Urinary Filtration, Intermittent, Less than 6 Hours Per Day (ICD-10-PCS; 2023-11-04)
DX: T80.211A Bloodstream infection due to central venous catheter, initial encounter (principal); A41.9 Sepsis, unspecified organism; G93.41 Metabolic encephalopathy; I50.33 Acute on chronic diastolic (congestive) heart failure; N18.6 End stage renal disease; R65.21 Severe sepsis with septic shock; J96.00 Acute respiratory failure, unspecified whether with hypoxia or hypercapnia; J10.00 Influenza due to other identified influenza virus with unspecified type of pneumonia; R57.0 Cardiogenic shock; I13.2 Hypertensive heart and chronic kidney disease with heart failure and with stage 5 chronic kidney disease, or end stage renal disease; D62 Acute posthemorrhagic anemia; T82.838A Hemorrhage due to vascular prosthetic devices, implants and grafts, initial encounter; B37.49 Other urogenital candidiasis; E11.22 Type 2 diabetes mellitus with diabetic chronic kidney disease; E03.9 Hypothyroidism, unspecified; I48.91 Unspecified atrial fibrillation; E78.5 Hyperlipidemia, unspecified; Z20.822 Contact with and (suspected) exposure to COVID-19; I25.10 Atherosclerotic heart disease of native coronary artery without angina pectoris; K80.20 Calculus of gallbladder without cholecystitis without obstruction; N40.0 Benign prostatic hyperplasia without lower urinary tract symptoms; H70.90 Unspecified mastoiditis, unspecified ear; D69.6 Thrombocytopenia, unspecified; B96.89 Other specified bacterial agents as the cause of diseases classified elsewhere; Z99.2 Dependence on renal dialysis; Z95.1 Presence of aortocoronary bypass graft; Z79.01 Long term (current) use of anticoagulants; Z90.49 Acquired absence of other specified parts of digestive tract; Y83.8 Other surgical procedures as the cause of abnormal reaction of the patient, or of later complication, without mention of misadventure at the time of the procedure; Y92.89 Other specified places as the place of occurrence of the external cause; I25.2 Old myocardial infarction; Z86.14 Personal history of Methicillin resistant Staphylococcus aureus infection
CPT/HCPCS: 36415; 36600; 70450; 71045; 80048; 80053; 80202; 81001; 81003; 82803; 82948; 83605; 83880; 84443; 84484; 85025; 85379; 85384; 85610; 85730; 86704; 86706; 86708; 86709; 86803; 86870; 86886; 86900; 86901; 86920; 87040; 87081; 87086; 87340; 92526; 93971; 96361; 96365; 99291; 99292; C9132; J0461; J0610; J1265; J1450; J1644; J1815; J2543; J3370; J3490; J7060; P9016; P9017; P9046; Q0092; Q5106